=== PATIENT | male | born 1975 | race Caucasian/White ===

== ENCOUNTER 2022-11-21 07:52 | Outpatient (REF) | payer OTHER, SELFPAY ==
[2022-11-21 11:32] LABS: Hematocrit 44.4 % (42.0-52.0); Hemoglobin 16.1 g/dl (14.0-18.0); Mean Corpuscular HGB Conc 36.3 g/dl (31.0-36.0); Mean Corpuscular Hemoglobin 31.9 pg (27.0-33.0); Mean Corpuscular Volume 87.9 fL (80.0-98.0); Mean Platelet Volume 10.4 fL (9.4-12.4); Platelet Count 396 X10*3/uL (160-400); Red Blood Count 5.05 X10*6/uL (4.60-5.80); Red Cell Distribution Width 12.9 % (11.0-16.0); White Blood Count 10.4 X10*3/uL (4.8-10.8)
[2022-11-21 13:28] LABS: Alanine Aminotransferase 27 U/L (0-40); Albumin Level 4.5 g/dL (3.5-5.0); Alkaline Phosphatase 83 U/L (39-117); Anion Gap 18 (12-20); Aspartate Amino Transferase 26 U/L (5-37); Bilirubin Total 0.4 mg/dL (0.0-1.0); Blood Urea Nitrogen 25 mg/dL (9-16); Calcium 10.4 mg/dL (8.4-10.2); Carbon Dioxide 23 mmol/L (22-29); Chloride 94 mmol/L (96-108); Cholesterol 750 mg/dL; Estimated Glomerular Filt Rate > 60; Glucose Fasting 267 mg/dL (60-99); HDL Cholesterol 32 mg/dL; Potassium 4.9 mmol/L (3.3-5.1); Sodium 130 mmol/L (135-145); Triglycerides 3829 mg/dL
== END 2022-11-21 07:53 | disposition home or self-care (01) ==
LOC: HO.WFDLDS 07:52
PROVIDERS: Visit Provider Nurse Practitioner Family
DX: Z00.00 Encounter for general adult medical examination without abnormal findings (principal)
CPT/HCPCS: 36415; 80053; 80061; 84443; 85027

== ENCOUNTER 2023-02-07 11:30 | Outpatient (REF) | payer OTHER, SELFPAY ==
[2023-02-08 02:08] LABS: Alanine Aminotransferase 24 U/L (0-40); Albumin Level 4.3 g/dL (3.5-5.0); Alkaline Phosphatase 84 U/L (39-117); Anion Gap 16 (12-20); Aspartate Amino Transferase 22 U/L (5-37); Bilirubin Total 0.5 mg/dL (0.0-1.0); Blood Urea Nitrogen 20 mg/dL (9-16); Calcium 9.6 mg/dL (8.4-10.2); Carbon Dioxide 25 mmol/L (22-29); Chloride 95 mmol/L (96-108); Estimated Glomerular Filt Rate > 60; Glucose Fasting 197 mg/dL (60-99); HDL Cholesterol 26 mg/dL; Potassium 3.9 mmol/L (3.3-5.1); Sodium 132 mmol/L (135-145); Total Protein 8.7 g/dL (6.5-8.0)
[2023-02-08 03:45] LABS: Cholesterol 947 mg/dL; Triglycerides 3339 mg/dL
[2023-02-09 09:59] LABS: LDL Cholesterol Direct 143 mg/dL (<100)
== END 2023-02-07 11:31 | disposition home or self-care (01) ==
LOC: HO.WFDLDS 11:30
PROVIDERS: Visit Provider Nurse Practitioner Family
DX: E11.9 Type 2 diabetes mellitus without complications (principal); E66.9 Obesity, unspecified; I10 Essential (primary) hypertension; E78.5 Hyperlipidemia, unspecified
CPT/HCPCS: 36415; 80053; 80061; 83721

== ENCOUNTER 2023-02-12 16:17 | Outpatient (AMB) | payer OTHER, SELFPAY ==
--- NOTE | 2023-02-12 16:16 | MHC.PC.OV ---
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 Mental Health Required: No Allergies bee pollen Allergy (Mild, Verified 02/12/23 16:22) Vomiting Medication List - Last Reconciled 02/12/23 by Cally Rodriguez CNP blood pressure test kit-large As directed blood sugar diagnostic As directed blood-glucose meter As directed carvedilol 6.25 mg (2 x 3.125 mg) PO BID 30 days empagliflozin (Jardiance) 10 mg PO DAILY 30 days epinephrine (EpiPen 2-Keshav) 0.3 mg (0.3 mL) IM Q4H PRN fenofibrate 120 mg PO DAILY 30 days furosemide 40 mg PO DAILY lancets As directed metformin 500 mg PO BID 30 days omeprazole 20 mg PO DAILY 30 days rosuvastatin 40 mg PO DAILY 30 days sacubitril-valsartan 24-26 mg (Entresto) 1 tab PO BID ticagrelor 60 mg PO Q12H Tobacco use date assessed: 08/30/22 Dental Screening Dental Screen Date: 02/12/23 Did you have a dental visit in the last 12 months?: Yes Did you have a dental problem in the last 6 months where you did not have access to dental care?: No Was dental information given to patient?: Patient has dentist HPI HPI Comments History of Present Illness Details 47-year-old male presents for review of lipid panel results. He had blood work done on 02/07/2023. His Triglyceride was 3339, total cholesterol was 947, LDL direct was 143, and HDL was 26. Rosuvastatin 40 mg daily and fenofibrate 120 mg daily were ordered. No acute symptoms. He states that he drank half a gal to 3/4 upper gal whole milk for several years until last May when he was seriously ill, hospitalized, and diagnosed with sepsis and CHF. Since then, he drank 2% of the same amount of milk daily up until recently and changed to 1%, same quantity. He admits to exercising routinely. He is followed by cardiology and has a follow up appointment later this month. [facility] Surgical History H/O heart artery stent Social History Housing: Condominium Patient Tobacco Use Status: Former Tobacco user Tobacco use type: Cigarette e-Cigarette/Vaping Use: Never Used Second Hand Smoke Exposure: No service: No Current occupational status: employed Current occupational exposures/hazards: No Cognitive needs: No Hearing needs: No Vision needs: No Questionnaire Thrive Questionnaire Date Thrive assessed: 08/30/22 KEL-7 AMB Questionnaire KEL-7 Date KEL - 7 assessed: 08/30/22 Source: Developed by Drs. Volodymyr Saba, Rafia Bingham, Dirk Galvin and colleagues, with an educational merlin from [employer]. Review of Systems Const Details: Const Denies chills, Denies fatigue, Denies fever(s), Denies headache(s) and Denies weakness ENT Denies dizziness and Denies headache(s) Card Denies chest pain, Denies lightheadedness, Denies dyspnea and Denies other (Palpitations) Resp Denies cough, Denies dyspnea, Denies wheezing and Denies other ( shortness of breath) GI Denies abdominal pain, Denies melena, Denies hematochezia, Denies change in bowel habits, Denies dyspepsia and Denies nausea Denies hematuria and Denies dysuria Musc Denies abnormal gait, Denies myalgias, Denies arthralgias, Denies numbness and Denies tingling Skin/Breast Denies rash, Denies unusual bruising and Denies wounds Neuro Denies abnormal gait, Denies dizziness, Denies headache(s), Denies memory loss, Denies numbness, Denies Sensory deficit (Neuro), Denies tingling and Denies weakness Psych Denies anxiety and Denies depression Endo Denies fatigue Aller/Immun Denies wheezing Physical exam (Primary Care) Tobacco/Smoking Status: Tobacco use Status Tobacco use date assessed 08/30/22 02/12/23 16:19 Patient Tobacco Use Status Former Tobacco user 02/12/23 16:19 Tobacco use type Cigarette 02/12/23 16:19 e-Cigarette/Vaping Use Never Used 02/12/23 16:19 Thrive Assessment: Date of Thrive Assessment Date Thrive assessed 08/30/22 02/12/23 16:19 Const Other: General: no acute distress and well developed Nutritional Appearance: well nourished Orientation/consciousness: patient oriented x3 [facility] Head: Yes normocephalic and Yes atraumatic Eyes General: appearance normal, both eyes and all related structures Pupils: Equal, round and reactive pupils present EOM: EOMs intact bilaterally Resp Effort & Inspection: normal respiratory effort Auscultation: clear to auscultation bilaterally Cardio Rate: regular rate Rhythm: regular rhythm Heart sounds: S1 normal heart sound present, S2 normal heart sound present, no gallops, no murmurs and no rubs GI Palpation (GI): No Abdominal aortic bruit present, Soft to palpation, nontender, No hepatosplenomegaly present and No Rebound tenderness present Auscultation: normal bowel sounds General: Yes no CVA tenderness Back/Spine/Pelvis Back: no CVA tenderness Cervical Spine: cervical ROM normal and No Cervical spine tenderness Thoracic/Lumbar Spine: thoraco-lumbar ROM normal, No pain with thoraco-lumbar ROM, No thoracic spinal tenderness and No lumbar spinal tenderness Extrem General: Yes normal to inspection, No edema and No calf tenderness Skin General: warm and dry. Normal skin color. Normal skin turgor Lesions: no lesions Rashes: no rashes Trauma: no lacerations or abrasions Wounds: no wounds Nails: normal Neuro General: patient oriented x3, gait normal and no focal neuro deficit Cranial nerves: Yes Equal, round and reactive pupils present Cognition (Neuro): normal cognition Gait exam (Neuro): Normal gait present Sensory Exam: No Sensory deficit (Neuro) Psych Affect: normal affect Assessment and Plan Assessment & Plan (1) Hyperlipidemia: Code(s): E78.5 - Hyperlipidemia, unspecified Plan: Recent triglyceride, total cholesterol, and LDL were significantly elevated Take rosuvastatin and fenofibrate as prescribed Advised to limit foods high in saturated fat and avoid foods high in trans fat Intends to significantly reduce his milk intake Routine exercise encouraged Lipid panel ordered. Advised to get fasting blood work done before next visit Follow-up in 6 weeks or return sooner with concerns or symptoms Verbalized understanding and agreed with treatment plan. (2) Essential hypertension: Code(s): I10 - Essential (primary) hypertension Plan: Blood pressure is 130/72, slightly above goal of less than 130/80 Continue current treatment regimen Low-sodium diet encouraged Will continue to monitor He will follow-up in 6 weeks for hyperlipidemia Coding Level of Care Code Est Pt Level 3 (29560) Diagnoses Hyperlipidemia E78.5 Essential hypertension I10 Time Spent (min) 25
[2023-02-12 16:22] VITALS: BP 130/72; PULSE 90; O2SAT 97; BMI 33.2
== END 2023-02-12 16:48 | disposition home or self-care (01) ==
PROVIDERS: PCP Nurse Practitioner Family; Visit Provider Nurse Practitioner Family
DX: E78.5 Hyperlipidemia, unspecified (principal); I10 Essential (primary) hypertension
CPT/HCPCS: 99213

== ENCOUNTER 2023-03-28 16:03 | Outpatient (AMB) | payer OTHER, SELFPAY ==
[2023-03-28 16:07] VITALS: BP 134/86; PULSE 101; RESP 12; TEMP 36.5; O2SAT 97; BMI 30.4
--- NOTE | 2023-03-28 16:07 | A.OFFPC_ITS ---
Vital Signs 03/28/23 16:07 Height 5 ft 7 in Weight 194 lb 4 oz BMI 30.4 BP 134/86 Blood Pressure Location Rt brachial Position Sitting Respiration 12 Pulse 101 H Pulse Source Pulse Oximeter Temp 97.7 F Temp Source Temporal Artery Scan Pulse Oximetry (%) 97 Oxygen Delivery Method Room Air Intake Visit Reasons: 6wks HLD Intake Note: Patient states that his sugars have been high, so high that the meter wont tell him what the number is. Last time he was able to see a number for his glucose it 480 when he woke up, without eating. Patient states that the 480 is the lowest its been since last week. Patient states that he has been struggling to sleep and has been very fatigued.Patient states that he would like a note stating that hes been out since the and when he may return to work. 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 He is followed by Cardiology. He was referred to [facility] endocrinology for diabetes management. [facility] endocrinology referred him to Jordi Richey, Endocrinology in [place]. There is documentation Dr Bacon's office sent a letter to the patient requesting form to call and schedule an appointment to establish care. He notes he has been ridding a bicycle routinely and has lost 19 lb in the past 6 weeks. He notes he checks his blood sugar routinely and 2-3 times daily. He states most of his glucometer reading have been High. He notes his fasting glucose around 6 AM today was 418. He reports significant fatigue for the past 1 week. He states last week he was very tired and fell asleep while working. He has not been working for the past 1 week due to fatigue. 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 He has not done lipid panel blood work that is due. He notes he had retinal eye exam a month ago: normal [facility] Medical History (Updated 03/28/23 @ 16:43 by Cally Rodriguez CNP) No pertinent past medical history Surgical History H/O heart artery stent Family History (Updated 03/28/23 @ 16:23 by Mar Vázquez MA) Sister Heart attack [facility] Patient Tobacco Use Status: Former Tobacco user Tobacco use type: Cigarette e-Cigarette/Vaping Use: Never Used Second Hand Smoke Exposure: No service: No Current occupational status: employed Current occupational exposures/hazards: No Cognitive needs: No Hearing needs: No Vision needs: No Questionnaire Thrive Questionnaire Date Thrive assessed: 08/30/22 KEL-7 AMB Questionnaire KEL-7 Date KEL - 7 assessed: 08/30/22 Source: Developed by Drs. Volodymyr Saba, Rafia Bingham, Dirk Galvin and colleagues, with an educational merlin from [employer]. Review of Systems Const Details: Const Denies chills, Reports fatigue, Denies fever(s), Denies headache(s) and Denies weakness ENT Denies dizziness and Denies headache(s) Card Denies chest pain, Denies lightheadedness, Denies dyspnea and Denies other (Palpitations) Resp Denies cough, Denies dyspnea, Denies wheezing and Denies other ( shortness of breath) GI Denies abdominal pain, Denies melena, Denies hematochezia, Denies change in bowel habits, Denies dyspepsia and Denies nausea Denies hematuria and Denies dysuria Musc Denies abnormal gait, Denies myalgias, Denies arthralgias, Denies numbness and Denies tingling Skin/Breast Denies rash, Denies unusual bruising and Denies wounds Neuro Denies abnormal gait, Denies dizziness, Denies headache(s), Denies memory loss, Denies numbness, Denies Sensory deficit (Neuro), Denies tingling and Denies we akness Psych Denies anxiety, Denies depression, Denies memory loss Endo Denies cold intolerance, Denies fatigue, Denies heat intolerance, Denies polyd ipsia and Denies polyuria Aller/Immun Denies wheezing Physical exam (Primary Care) Vital Signs: Last Vital Signs Temp 96.7 F L 03/28/23 16:07 Pulse 101 H 03/28/23 16:07 Resp 12 03/28/23 16:07 Pulse Ox 97 03/28/23 16:07 Oxygen Delivery Method Room Air 03/28/23 16:07 BMI result Body Mass Index 30.4 Tobacco/Smoking Status: Tobacco use Status Tobacco use date assessed 08/30/22 03/28/23 16:13 Patient Tobacco Use Status Former Tobacco user 03/28/23 16:13 Tobacco use type Cigarette 03/28/23 16:13 e-Cigarette/Vaping Use Never Used 03/28/23 16:13 Thrive Assessment: Date of Thrive Assessment Date Thrive assessed 08/30/22 03/28/23 16:13 Const Other: General: no acute distress and well developed Nutritional Appearance: well nourished Orientation/consciousness: patient oriented x3 HENMT Head: Yes normocephalic and Yes atraumatic Eyes General: appearance normal, both eyes and all related structures Pupils: Equal, round and reactive pupils present EOM: EOMs intact bilaterally Resp Effort & Inspection: normal respiratory effort Auscultation: clear to auscultation bilaterally Cardio Rate: regular rate Rhythm: regular rhythm Heart sounds: S1 normal heart sound present, S2 normal heart sound present, no gallops, no murmurs and no rubs GI Palpation (GI): No Abdominal aortic bruit present, Soft to palpation, nontender, No hepatosplenomegaly present and No Rebound tenderness present Auscultation: normal bowel sounds General: Yes no CVA tenderness Back/Spine/Pelvis Back: no CVA tenderness Cervical Spine: cervical ROM normal and No Cervical spine tenderness Thoracic/Lumbar Spine: thoraco-lumbar ROM normal, No pain with thoraco-lumbar ROM, No thoracic spinal tenderness and No lumbar spinal tenderness Extrem General: Yes normal to inspection, No edema and No calf tenderness Skin General: warm and dry. Normal skin color. Normal skin turgor Lesions: no lesions Rashes: no rashes Trauma: no lacerations or abrasions Wounds: no wounds Nails: normal Neuro General: patient oriented x3, gait normal and no focal neuro deficit Cranial nerves: Yes Equal, round and reactive pupils present Cognition (Neuro): normal cognition Gait exam (Neuro): Normal gait present Sensory Exam: No Sensory deficit (Neuro) Psych Appearance: grossly normal Affect: normal affect Attitude: cooperative Thought process: Normal thought process present Results AMB Random Glucose (hemocue) AMB Random Glucose (hemocue) 533 mg/dL Last Edit by Mar Vázquez MA on 03/28/23 17:03 AMB Hemoglobin A1c AMB Hemoglobin A1c 12 % Last Edit by Mar Vázquez MA on 03/28/23 17:06 Assessment and Plan Assessment & Plan (1) Essential hypertension: Code(s): I10 - Essential (primary) hypertension Plan: Blood pressure is 138/86, slightly above goal of less than 130/80 Continue current treatment regimen Low-sodium diet encouraged Continue follow-up with cardiology as planned Verbalized understanding and agreed with treatment plan (2) Type 2 diabetes mellitus: Code(s): E11.9 - Type 2 diabetes mellitus without complications Plan: Last A1c in 01/12/2023 was 8.6% Random blood glucose is 533 A1c is 12.0%, above goal of less than 7.0% Hyperosmolar hyperglycemic state is likely Lantus ordered. Take as prescribed Instructed on insulin pain use Continue to take metformin and Jardiance as prescribed ADA diet, routine exercise, and adequate hydration encouraged Advised to call Dr. Bacon, Endocrinology to set up an appointment Check blood glucose 3 times daily, record readings and bring to next appointment Excuse letter given for work for the next 1 week Follow-up in 2 weeks or return sooner with worsening or new symptoms Verbalized understanding and agreed with treatment plan. (3) Fatigue: Code(s): R53.83 - Other fatigue Plan: Fatigue may be attributed to elevated blood glucose. Continue with diabetes regimen as prescribed Anemia and thyroid disease is also likely. Will check CBC and TSH Adequate hydration encouraged Follow-up in 2 weeks or return sooner with worsening or new symptoms Verbalized understanding and agreed with treatment plan (4) Hyperlipidemia: Code(s): E78.5 - Hyperlipidemia, unspecified Plan: He has not done lipid panel blood work that is due He has history of very high triglycerides and cholesterol levels Encouraged to get fasting blood work done before next visit Advised to limit foods high in saturated fat and avoid foods high trans fat Routine exercise encouraged Follow-up in 2 weeks Verbalized understanding and agreed with treatment plan. Orders: Orders Complete Blood Count Auto Diff Today R53.83 - Other fatigue TSH reflex Free T4 Today R53.83 - Other fatigue AMB Random Glucose (hemocue) Today Z13.9 - Encounter for screening, unspecified Medications: New metformin 500 mg PO BID 30 days 60 tabs 2RF insulin glargine (Lantus Solostar U-100 Insulin) 10 units (0.1 mL) subcut QPM 15 mL 2RF pen needle, diabetic (BD Ultra-Fine Micro Pen Needle) As directed 100 ea 2RF E11.9 - Type 2 diabetes mellitus without complications Discontinued metformin Discontinued Reason: Doctor's Order 500 mg PO BID 30 days 60 tabs 3RF Coding Level of Care Code Est Pt Level 3 (45719) Diagnoses Essential hypertension I10 Type 2 diabetes mellitus E11.9 Fatigue R53.83 Hyperlipidemia E78.5
== END 2023-03-28 17:20 | disposition home or self-care (01) ==
PROVIDERS: PCP Nurse Practitioner Family; Visit Provider Nurse Practitioner Family
DX: I10 Essential (primary) hypertension (principal); E11.9 Type 2 diabetes mellitus without complications; R53.83 Other fatigue; E78.5 Hyperlipidemia, unspecified
CPT/HCPCS: 82948; 99213

== ENCOUNTER 2023-04-03 15:28 | Outpatient (AMB) | payer OTHER, SELFPAY ==
--- NOTE | 2023-04-03 15:32 | MHC.PC.OV ---
Vital Signs 04/03/23 15:33 Height 5 ft 7 in Weight 183 lb BMI 28.7 BP 124/74 Blood Pressure Location Lt brachial Position Sitting Respiration 13 Pulse 99 Pulse Source Pulse Oximeter Temp 97.2 F Temp Source Temporal Artery Scan Pulse Oximetry (%) 99 Oxygen Delivery Method Room Air Intake Visit Reasons: Stomach Pains Intake Note: Patient states that he hasnt been able to drink or hold anything down since Sunday03/30/23 which was his last visit in office. Patient states that his blood sugar was at 426 right before he got here and he hasnt eaten or drank anything for it to be that high. 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 He states that his symptoms started 4 days ago an have progressively gotten worse. He has lost 10 lb in the past 1 week. He was evaluated last week for hyperlipidemia, hypertension, and diabetes. He reported elevated fasting and nonfasting blood glucose. Random blood glucose was 533, A1c was 12.0. Hypeerosmolar hyperglycemic state was suspected. Lantus was prescribed. Adequate hydration was encouraged. He was advised to call and establish an appointment with Endocrinology. He notes he has been taking Lantus as prescribed. He has not called endocrinology to set up an appointment. He states his blood glucose has been in the 300s. His random glucose was 426 before leaving his home for this office. [facility] Medical History (Updated 04/03/23 @ 16:11 by Cally Rodriguez CNP) No pertinent past medical history Surgical History H/O heart artery stent Family History Sister Heart attack Social History Housing: Condominium Patient Tobacco Use Status: Former Tobacco user Tobacco use type: Cigarette e-Cigarette/Vaping Use: Never Used Second Hand Smoke Exposure: No service: No Current occupational status: employed Current occupational exposures/hazards: No Cognitive needs: No Hearing needs: No Vision needs: No Questionnaire Thrive Questionnaire Date Thrive assessed: 08/30/22 KEL-7 AMB Questionnaire KEL-7 Date KEL - 7 assessed: 08/30/22 Source: Developed by Drs. Volodymyr Saba, Rafia Bingham, Dirk Galvin and colleagues, with an educational merlin from [email or web address]. Review of Systems Const Details: Const Denies chills, Denies fatigue, Denies fever(s), Denies headache(s) and Denies weakness ENT Denies dizziness and Denies headache(s) Card Denies chest pain, Denies lightheadedness, Denies dyspnea and Denies other (Palpitations) Resp Denies cough, Denies dyspnea, Denies wheezing and Denies other ( shortness of breath) GI Reports as per HPI Denies hematuria and Denies dysuria Musc Denies abnormal gait, Denies myalgias, Denies arthralgias, Denies numbness and Denies tingling Skin/Breast Denies rash, Denies unusual bruising and Denies wounds Neuro Denies abnormal gait, Denies dizziness, Denies headache(s), Denies memory loss, Denies numbness, Denies Sensory deficit (Neuro), Denies tingling and Denies weakness Psych Denies anxiety, Denies depression, Denies memory loss Endo Denies cold intolerance, Denies fatigue, Denies heat intolerance, Denies polydipsia and Denies polyuria Aller/Immun Denies wheezing Physical exam (Primary Care) Tobacco/Smoking Status: Tobacco use Status Tobacco use date assessed 08/30/22 03/28/23 16:13 Patient Tobacco Use Status Former Tobacco user 03/28/23 16:13 Tobacco use type Cigarette 03/28/23 16:13 e-Cigarette/Vaping Use Never Used 03/28/23 16:13 Thrive Assessment: Date of Thrive Assessment Date Thrive assessed 08/30/22 03/28/23 16:13 Const Other: General: no acute distress and well developed Nutritional Appearance: well nourished Orientation/consciousness: patient oriented x3 HENMT Head: Yes normocephalic and Yes atraumatic Dry mucous membrane Eyes General: appearance normal, both eyes and all related structures Pupils: Equal, round and reactive pupils present EOM: EOMs intact bilaterally Resp Effort & Inspection: normal respiratory effort Auscultation: clear to auscultation bilaterally Cardio Rate: regular rate Rhythm: regular rhythm Heart sounds: S1 normal heart sound present, S2 normal heart sound present, no gallops, no murmurs and no rubs GI Palpation (GI): No Abdominal aortic bruit present, Soft to palpation, significant tenderness to palpation, No hepatosplenomegaly present and No Rebound tenderness present Auscultation: normal bowel sounds General: Yes no CVA tenderness Back/Spine/Pelvis Back: no CVA tenderness Cervical Spine: cervical ROM normal and No Cervical spine tenderness Thoracic/Lumbar Spine: thoraco-lumbar ROM normal, No pain with thoraco-lumbar ROM, No thoracic spinal tenderness and No lumbar spinal tenderness Extrem General: Yes normal to inspection, No edema and No calf tenderness Skin General: warm and dry. Normal skin color. Normal skin turgor Lesions: no lesions Rashes: no rashes Trauma: no lacerations or abrasions Wounds: no wounds Nails: normal Neuro General: patient oriented x3, gait normal and no focal neuro deficit Cranial nerves: Yes Equal, round and reactive pupils present Cognition (Neuro): normal cognition Gait exam (Neuro): Normal gait present Sensory Exam: No Sensory deficit (Neuro) Psych Appearance: grossly normal Affect: normal affect Attitude: cooperative Thought process: Normal thought process present Assessment and Plan Assessment & Plan (1) Abdominal pain: Code(s): R10.9 - Unspecified abdominal pain Qualifiers: Abdominal location: generalized Qualified Code(s): R10.84 - Generalized abdominal pain Plan: Significant abdominal tenderness to palpation Dry mucous membrane noted HHS may have escalated to DKA Dehydration is also likely Advised to go to the ED for further evaluation and treatment Verbalized understanding and agreed with the plan. (2) Vomiting: Code(s): R11.10 - Vomiting, unspecified Qualifiers: Vomiting type: bilious vomiting Plan: As above Coding Level of Care Code Est Pt Level 3 (51595) Diagnoses Generalized abdominal pain R10.84 Abdominal location: generalized Vomiting R11.10 Vomiting type: bilious vomiting
[2023-04-03 15:33] VITALS: BP 124/74; PULSE 99; RESP 13; TEMP 36.2; O2SAT 99; BMI 28.7
== END 2023-04-03 16:25 | disposition home or self-care (01) ==
PROVIDERS: PCP Nurse Practitioner Family; Visit Provider Nurse Practitioner Family
DX: R10.84 Generalized abdominal pain (principal); R11.10 Vomiting, unspecified
CPT/HCPCS: 99213

== ENCOUNTER 2023-04-09 11:34 | Outpatient (REF) | payer OTHER, SELFPAY ==
[2023-04-09 14:16] LABS: MANUAL DIFF FLAG NO
[2023-04-09 14:21] LABS: Basophils Absolute Auto 0.1 X10*3/uL (0.0-0.2); Basophils Percent Auto 0.5 % (0-2); Eosinophils Absolute Auto 0.2 X10*3/uL (0.0-0.4); Hematocrit 44.6 % (42.0-52.0); Hemoglobin 15.5 g/dl (14.0-18.0); Imm Gran Abs Auto 0.07 X10*3/uL (0.00-0.03); Imm Gran Pct Auto 0.7 % (0.0-0.4); Lymphocytes Absolute Auto 3.2 X10*3/uL (1.2-4.9); Lymphocytes Percent Auto 33.4 % (20-40); Mean Corpuscular HGB Conc 34.8 g/dl (31.0-36.0); Mean Corpuscular Hemoglobin 28.9 pg (27.0-33.0); Mean Corpuscular Volume 83.2 fL (80.0-98.0); Mean Platelet Volume 10.3 fL (9.4-12.4); Monocytes Absolute Auto 0.7 X10*3/uL (0.1-1.2); Monocytes Percent Auto 7.6 % (2-11); Neutrophils Absolute Auto 5.3 x10*3/uL (2.0-8.3); Neutrophils Percent Auto 55.8 % (45-73); Platelet Count 438 X10*3/uL (160-400); Red Blood Count 5.36 X10*6/uL (4.60-5.80); Red Cell Distribution Width 12.3 % (11.0-16.0); White Blood Count 9.6 X10*3/uL (4.8-10.8)
[2023-04-09 15:01] LABS: Cholesterol 316 mg/dL (<200); HDL Cholesterol 40 mg/dL (>40); LDL Cholesterol Calculated 203 mg/dL (<100); Triglycerides 367 mg/dL (<150)
[2023-04-09 15:08] LABS: TSH reflex Free T4 2.03 uIU/mL (0.32-4.0)
== END 2023-04-09 11:35 | disposition home or self-care (01) ==
LOC: HO.WFDLDS 11:34
PROVIDERS: Visit Provider Nurse Practitioner Family
DX: E78.5 Hyperlipidemia, unspecified (principal); R53.83 Other fatigue
CPT/HCPCS: 36415; 80061; 84443; 85025

== ENCOUNTER 2023-04-13 15:35 | Outpatient (AMB) | payer OTHER, SELFPAY ==
--- NOTE | 2023-04-13 15:40 | MHC.PC.OV ---
Vital Signs 04/13/23 15:41 Height 5 ft 7 in Weight 187 lb BMI 29.3 BP 128/70 Blood Pressure Location Rt brachial Position Sitting Respiration 12 Pulse 100 Pulse Source Pulse Oximeter Temp 97 F Temp Source Temporal Artery Scan Pulse Oximetry (%) 97 Oxygen Delivery Method Room Air Intake Visit Reasons: 2 wks DM, HLD Intake Note: Patient would like a note for work for todays visit. Patient also states that he has been having problems with vision since his sugars have been high. 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 Accompanied by: self Allergies bee pollen Allergy (Mild, Verified 04/13/23 15:51) Vomiting Medication List - Last Reviewed 04/13/23 by Mar Vázquez MA blood pressure test kit-large As directed blood sugar diagnostic As directed blood sugar diagnostic (FreeStyle Lite Strips) As directed TID blood-glucose meter (FreeStyle Lite Meter kit) As directed carvedilol 6.25 mg (2 x 3.125 mg) PO BID 30 days empagliflozin (Jardiance) 10 mg PO DAILY 30 days epinephrine (EpiPen 2-Keshav) 0.3 mg (0.3 mL) IM Q4H PRN fenofibrate 120 mg PO DAILY 30 days furosemide 40 mg PO DAILY insulin glargine (Lantus Solostar U-100 Insulin) 10 units (0.1 mL) subcut QPM lancets (Easy Touch Lancets) As directed metformin 500 mg PO BID 30 days omeprazole 20 mg PO DAILY 30 days pen needle, diabetic (BD Ultra-Fine Micro Pen Needle) As directed rosuvastatin 40 mg PO DAILY 30 days sacubitril-valsartan 24-26 mg (Entresto) 1 tab PO BID ticagrelor 60 mg PO Q12H Tobacco use date assessed: 08/30/22 Dental Screening Dental Screen Date: 04/13/23 Did you have a dental visit in the last 12 months?: No Did you have a dental problem in the last 6 months where you did not have access to dental care?: No Was dental information given to patient?: Yes HPI HPI Comments History of Present Illness Details 47-year-old male presents for hyperlipidemia and diabetes follow-up. He was evaluated on 04/03/2023 for abdominal pain, nausea, and hyperglycemia. He reported for random blood glucose of 426 before arriving. He was advised to go to the ED for for the dehydration and evaluation for HHS versus DKA. He was evaluated at [facility] ED on 04/04/2023. CT abdomen/pelvis without acute findings. Labs without evidence of ketoacidosis, although days evidence of ketosis which is likely playing a role in presentation. He received IV pain medication, LR, insulin with improvement of symptoms and blood glucose. He notes that his GI symptoms have completely resolved. He states his blood glucose is still over 400. He reports associated significant blurry vision with elevated blood glucose. He admits to taking his medications as prescribed and maintaining a healthy diet. He states he has an appointment with endocrinology later this month. He was referred to Ophthalmology earlier this year; he notes he was seen 3 months ago and had a normal eye exam [facility] Medical History No pertinent past medical history Surgical History H/O heart artery stent Family History Sister Heart attack Social History [facility] Patient Tobacco Use Status: Former Tobacco user Tobacco use type: Cigarette e-Cigarette/Vaping Use: Never Used Second Hand Smoke Exposure: No service: No Current occupational status: employed Current occupational exposures/hazards: No Cognitive needs: No Hearing needs: No Vision needs: Yes Questionnaire Thrive Questionnaire Date Thrive assessed: 08/30/22 KEL-7 AMB Questionnaire KEL-7 Date KEL - 7 assessed: 08/30/22 Source: Developed by Drs. Volodymyr Saba, Rafia Bingham, Dirk Galvin and colleagues, with an educational merlin from [employer]. Review of Systems Const Details: Const Denies chills, Denies fatigue, Denies fever(s), Denies headache(s) and Denies weakness ENT Denies dizziness and Denies headache(s) Card Denies chest pain, Denies lightheadedness, Denies dyspnea and Denies other (Palpitations) Resp Denies cough, Denies dyspnea, Denies wheezing and Denies other ( shortness of breath) GI Denies abdominal pain, Denies melena, Denies hematochezia, Denies change in bowel habits, Denies dyspepsia and Denies nausea Denies hematuria and Denies dysuria Musc Denies abnormal gait, Denies myalgias, Denies arthralgias, Denies numbness and Denies tingling Skin/Breast Denies rash, Denies unusual bruising and Denies wounds Neuro Denies abnormal gait, Denies dizziness, Denies headache(s), Denies memory loss, Denies numbness, Denies Sensory deficit (Neuro), Denies tingling and Denies weakness Psych Denies anxiety, Denies depression, Denies memory loss Endo Denies cold intolerance, Denies fatigue, Denies heat intolerance, Denies polydipsia and Denies polyuria Aller/Immun Denies wheezing Physical exam (Primary Care) Tobacco/Smoking Status: Tobacco use Status Tobacco use date assessed 08/30/22 04/03/23 15:38 Patient Tobacco Use Status Former Tobacco user 04/03/23 15:38 Tobacco use type Cigarette 04/03/23 15:38 e-Cigarette/Vaping Use Never Used 04/03/23 15:38 Thrive Assessment: Date of Thrive Assessment Date Thrive assessed 08/30/22 04/03/23 15:38 Const Other: General: no acute distress and well developed Nutritional Appearance: well nourished Orientation/consciousness: patient oriented x3 HENMT Head: Yes normocephalic and Yes atraumatic Eyes General: appearance normal, both eyes and all related structures Pupils: Equal, round and reactive pupils present EOM: EOMs intact bilaterally Resp Effort & Inspection: normal respiratory effort Auscultation: clear to auscultation bilaterally Cardio Rate: regular rate Rhythm: regular rhythm Heart sounds: S1 normal heart sound present, S2 normal heart sound present, no gallops, no murmurs and no rubs GI Palpation (GI): No Abdominal aortic bruit present, Soft to palpation, nontender, No hepatosplenomegaly present and No Rebound tenderness present Auscultation: normal bowel sounds General: Yes no CVA tenderness Back/Spine/Pelvis Back: no CVA tenderness Cervical Spine: cervical ROM normal and No Cervical spine tenderness Thoracic/Lumbar Spine: thoraco-lumbar ROM normal, No pain with thoraco-lumbar ROM, No thoracic spinal tenderness and No lumbar spinal tenderness Extrem General: Yes normal to inspection, No edema and No calf tenderness Skin General: warm and dry. Normal skin color. Normal skin turgor Lesions: no lesions Rashes: no rashes Trauma: no lacerations or abrasions Wounds: no wounds Nails: normal Neuro General: patient oriented x3, gait normal and no focal neuro deficit Cranial nerves: Yes Equal, round and reactive pupils present Cognition (Neuro): normal cognition Gait exam (Neuro): Normal gait present Sensory Exam: No Sensory deficit (Neuro) Psych Appearance: grossly normal Affect: normal affect Attitude: cooperative Thought process: Normal thought process present Results AMB Random Glucose (hemocue) AMB Random Glucose (hemocue) 436 mg/dL Last Edit by Mar Vázquez MA on 04/13/23 16:24 Assessment and Plan Assessment & Plan (1) Essential hypertension: Code(s): I10 - Essential (primary) hypertension Plan: Blood pressures control, 128/70, within goal of less than 130/80 Continue with current treatment regimen Low-sodium diet encouraged Follow-up in 2 weeks or return sooner with symptoms or concerns Verbalized understanding and agreed with treatment the plan. (2) Type 2 diabetes mellitus: Code(s): E11.9 - Type 2 diabetes mellitus without complications Plan: Reports continued elevated blood glucose above 400 A1c was 12.0% earlier this month, above goal of less than 7.0% Random glucose today is 436 Ladarius increase Lantus to 20 units every night. Take as prescribed Continue to take metformin and Jardiance as prescribed ADA diet and routine exercise encouraged Follow-up with endocrinology as planned Monitor blood glucose daily, record readings, and bring to next appointment Informed that blurry vision may be attributed to elevated glucose level and may improve with control blood glucose levels Follow-up in 2 weeks or return sooner with worsening or new symptoms Verbalized understanding and agreed with treatment plan. (3) Hyperlipidemia: Code(s): E78.5 - Hyperlipidemia, unspecified Plan: Recent lab results reviewed with the patient His lipid levels have continues to improve significantly. Current LDL is 203 Continue to take rosuvastatin as prescribed Limit foods high in saturated fat and avoid foods high trans fat Routine exercise encouraged Will repeat lipid panel in 6 weeks Verbalized understanding and agreed with treatment plan. Orders: Orders Glucose Random Today E11.9 - Type 2 diabetes mellitus without complications Lipid Panel 6 Weeks E78.5 - Hyperlipidemia, unspecified Medications: New insulin glargine (Lantus Solostar U-100 Insulin) 20 units (0.2 mL) subcut QPM 30 days 15 mL 3RF Discontinued insulin glargine (Lantus Solostar U-100 Insulin) Discontinued Reason: Doctor's Order 10 units (0.1 mL) subcut QPM 15 mL 2RF Coding Level of Care Code Est Pt Level 3 (49923) Diagnoses Essential hypertension I10 Type 2 diabetes mellitus E11.9 Hyperlipidemia E78.5
[2023-04-13 15:41] VITALS: BP 128/70; PULSE 100; RESP 12; TEMP 36.1; O2SAT 97; BMI 29.3
== END 2023-04-13 16:32 | disposition home or self-care (01) ==
PROVIDERS: PCP Nurse Practitioner Family; Visit Provider Nurse Practitioner Family
DX: I10 Essential (primary) hypertension (principal); E11.9 Type 2 diabetes mellitus without complications; E78.5 Hyperlipidemia, unspecified
CPT/HCPCS: 99213

== ENCOUNTER 2023-06-28 12:39 | Outpatient (AMB) | payer OTHER, SELFPAY ==
[2023-06-28 12:41] VITALS: BP 136/74; PULSE 87; RESP 13; TEMP 36.4; O2SAT 97; BMI 29.6
--- NOTE | 2023-06-28 12:41 | A.OFFPC_ITS ---
Vital Signs 06/28/23 12:41 06/28/23 13:18 Height 5 ft 7 in Weight 189 lb BMI 29.6 BP 136/74 120/80 Blood Pressure Location Rt brachial Rt brachial Position Sitting Sitting Respiration 13 Pulse 87 Pulse Source Pulse Oximeter Temp 97.6 F Temp Source Temporal Artery Scan Pulse Oximetry (%) 97 Oxygen Delivery Method Room Air Intake Visit Reasons: 2 wks DM, HLD Intake Note: Patient states that his fet hurt really bad and feel like they're getting stabbed. Patient states that the pain goes away after walking on them for a little but when he stops the pain comes back. Patient states that he recently has gotten new glasses and already his reader glasses he cant see out of and it hasn't been 6 months. Epic Beacon Analyst Required: No Accompanied by: Self / Same As Patient Allergies bee pollen Allergy (Mild, Verified 06/28/23 13:02) Vomiting Medication List - Last Reconciled 06/28/23 by Cally Rodriguez CNP blood pressure test kit-large As directed blood sugar diagnostic As directed blood sugar diagnostic (FreeStyle Lite Strips) As directed TID blood-glucose meter (FreeStyle Lite Meter kit) As directed carvedilol 6.25 mg (2 x 3.125 mg) PO BID 30 days empagliflozin (Jardiance) 10 mg PO DAILY 30 days epinephrine (EpiPen 2-Keshav) 0.3 mg (0.3 mL) IM Q4H PRN fenofibrate 120 mg PO DAILY 30 days furosemide 40 mg PO DAILY insulin glargine (Lantus Solostar U-100 Insulin) 20 units (0.2 mL) subcut QPM 30 days lancets (Easy Touch Lancets) As directed metformin 500 mg PO BID 30 days omeprazole 20 mg PO DAILY 30 days pen needle, diabetic (BD Ultra-Fine Micro Pen Needle) As directed rosuvastatin 40 mg PO DAILY 30 days sacubitril-valsartan 24-26 mg (Entresto) 1 tab PO BID ticagrelor 60 mg PO Q12H Tobacco use date assessed: 08/30/22 Dental Screening Dental Screen Date: 06/28/23 Did you have a dental visit in the last 12 months?: No Did you have a dental problem in the last 6 months where you did not have access to dental care?: No Was dental information given to patient?: Yes HPI HPI Comments History of Present Illness Details 47-year-old male presents for diabetes f ollow-up He admits to taking his medications as prescribed without adverse reactions His Lantus was increased to 20 units daily at his last visit due to reported i ncreased blood glucose. Random glucose at that visit was 436 His last A1c in March was 12% He has not gotten labs done for urine microalbumin/creatinine ratio and repeat lipid panel He notes that he has been exercising and making healthy lifestyle choices. He states he lost about 25 lb in the last 3 months He reports needles sensation underneath his feet for the past 2 months. His symptoms intensifies with initial 30 steps and completely resolves He notes he had an intake for endocrinology in [facility] but has not been contacted for an appointment He notes that he has an appointment with cardiology next week for HTN and h/o CHF [facility] Medical History No pertinent past medical history Surgical History H/O heart artery stent Family History Sister Heart attack Social History Housing: Condominium Patient Tobacco Use Status: Former Tobacco user Tobacco use type: Cigarette e-Cigarette/Vaping Use: Never Used Second Hand Smoke Exposure: No service: No Current occupational status: employed 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 Volodymyr Saba, Rafia Bingham, Dirk Galvin and colleagues, with an educational merlin from [id number]. Review of Systems Const Details: Const Denies chills, Denies fatigue, Denies fever(s), Denies headache(s) and Denies weakness ENT Denies dizziness and Denies headache(s) Card Denies chest pain, Denies lightheadedness, Denies dyspnea and Denies other (Palpitations) Resp Denies cough, Denies dyspnea, Denies wheezing and Denies other ( shortness of breath) GI Denies abdominal pain, Denies melena, Denies hematochezia, Denies change in bowel habits, Denies dyspepsia and Denies nausea Denies hematuria and Denies dysuria Musc Denies abnormal gait, Denies myalgias, Denies arthralgias, Denies numbness and Denies tingling Skin/Breast Denies rash, Denies unusual bruising and Denies wounds Neuro Denies abnormal gait, Denies dizziness, Denies headache(s), Denies memory loss, Denies numbness, Denies Sensory deficit (Neuro), Denies tingling and Denies weakness Psych Denies anxiety, Denies depression, Denies memory loss Endo Denies cold intolerance, Denies fatigue, Denies heat intolerance, Denies polydipsia and Denies polyuria Aller/Immun Denies wheezing Physical exam (Primary Care) Vital Signs: Last Vital Signs Temp 97.6 F 06/28/23 12:41 Pulse 87 06/28/23 12:41 Resp 13 06/28/23 12:41 BP 136/74 06/28/23 12:41 Pulse Ox 97 06/28/23 12:41 Oxygen Delivery Method Room Air 06/28/23 12:41 BMI result Body Mass Index 29.6 Tobacco/Smoking Status: Tobacco use Status Tobacco use date assessed 08/30/22 06/28/23 12:49 Patient Tobacco Use Status Former Tobacco user 06/28/23 12:49 Tobacco use type Cigarette 06/28/23 12:49 e-Cigarette/Vaping Use Never Used 06/28/23 12:49 Thrive Assessment: Date of Thrive Assessment Date Thrive assessed 08/30/22 06/28/23 12:49 Const Other: General: no acute distress and well developed Nutritional Appearance: well nourished Orientation/consciousness: patient oriented x3 HENMT Head: Yes normocephalic and Yes atraumatic Eyes General: appearance normal, both eyes and all related structures Pupils: Equal, round and reactive pupils present EOM: EOMs intact bilaterally Resp Effort & Inspection: normal respiratory effort Auscultation: clear to auscultation bilaterally Cardio Rate: regular rate Rhythm: regular rhythm Heart sounds: S1 normal heart sound present, S2 normal heart sound present, no gallops, no murmurs and no rubs GI Palpation (GI): No Abdominal aortic bruit present, Soft to palpation, nontender, No hepatosplenomegaly present and No Rebound tenderness present Auscultation: normal bowel sounds General: Yes no CVA tenderness Back/Spine/Pelvis Back: no CVA tenderness Cervical Spine: cervical ROM normal and No Cervical spine tenderness Thoracic/Lumbar Spine: thoraco-lumbar ROM normal, No pain with thoraco-lumbar ROM, No thoracic spinal tenderness and No lumbar spinal tenderness Extrem General: Yes normal to inspection, No edema and No calf tenderness Skin General: warm and dry. Normal skin color. Normal skin turgor Neuro General: patient oriented x3, gait normal and no focal neuro deficit Cranial nerves: Yes Equal, round and reactive pupils present Cognition (Neuro): normal cognition Gait exam (Neuro): Normal gait present Sensory Exam: No Sensory deficit (Neuro) Psych Appearance: grossly normal Affect: normal affect Attitude: cooperative Thought process: Normal thought process present Assessment and Plan Assessment & Plan (1) Type 2 diabetes mellitus: Code(s): E11.9 - Type 2 diabetes mellitus without complications Plan: A1c today is 8.3%, above goal of less than 7.0% Will increase metformin to 850 mg daily. Take as prescribed Continue to take Lantus 20 units in the evening ADA diet and routine exercise encouraged His last diabetic eye exam was on 01/2023 Recent LDL was 203, above goal of less than 70 Encouraged to get lipid panel and urine micro albumin/creatinine ratio labs done before his next visit Will recheck A1c in 3 months Follow-up in 1 month for an extended physical exam or return sooner with symptoms or concerns Verbalized understanding and agreed with treatment plan (2) Essential hypertension: Code(s): I10 - Essential (primary) hypertension Plan: Resting blood pressure is 120/80, slightly above goal of less than 130/80 Continue current treatment regimen Low-sodium diet encouraged Will continue to monitor Follow-up in 2 months for an extended physical exam Verbalized understanding and agreed with treatment plan (3) Hyperlipidemia: Code(s): E78.5 - Hyperlipidemia, unspecified Plan: Recent triglycerides, total cholesterol, and LDL levels were elevated, 367, 316, and 203 respectively, HDL level was slightly low, 40 He did not get repeat lipid panel blood work done. Encouraged to get fasting blood work done before his next visit Advised to limit foods high in saturated fat and avoid foods high trans fat Routine exercise encouraged Follow-up appointment for complete physical exam in 2 months Verbalized understanding and agreed with treatment plan (4) Neuropathy of both feet: Code(s): G57.93 - Unspecified mononeuropathy of bilateral lower limbs Plan: Reports needles sensation underneath his feet for the past 2 months. His symptoms intensifies with initial 30 steps and completely resolves Likely diabetic neuropathy Gabapentin ordered. Take as prescribed Referred to Podiatry Follow-up with worsening or new symptoms Verbalized understanding and agreed with treatment plan Orders: Referrals Podiatry Referral E11.9 - Type 2 diabetes mellitus without complications, G57.93 - Unspecified mononeuropathy of bilateral lower limbs Medications: New metformin 850 mg PO BID 30 days 60 tabs 3RF gabapentin 300 mg PO BID 30 days 60 caps 2RF Discontinued metformin Discontinued Reason: Change Referral Type 500 mg PO BID 30 days 60 tabs 2RF Coding Level of Care Code Est Pt Level 4 (22858) Diagnoses Type 2 diabetes mellitus E11.9 Essential hypertension I10 Hyperlipidemia E78.5 Neuropathy of both feet G57.93
[2023-06-28 13:18] VITALS: BP 120/80
== END 2023-06-28 13:25 | disposition home or self-care (01) ==
PROVIDERS: PCP Nurse Practitioner Family; Visit Provider Nurse Practitioner Family
DX: E11.9 Type 2 diabetes mellitus without complications (principal); I10 Essential (primary) hypertension; E78.5 Hyperlipidemia, unspecified; G57.93 Unspecified mononeuropathy of bilateral lower limbs
CPT/HCPCS: 83036; 99214

== ENCOUNTER → 2024-11-17 14:48 | Outpatient (BNVA) | payer MEDICAID, SELFPAY | PROVIDERS: PCP Nurse Practitioner Family; Visit Provider Nurse Practitioner Family | DX: Z13.89 Encounter for screening for other disorder (principal) ==

== ENCOUNTER 2024-11-28 10:51 | Outpatient (AMB) | payer OTHER, SELFPAY ==
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
[2024-11-28 11:08] VITALS: BP 126/78; PULSE 93; RESP 14; TEMP 36.9; O2SAT 95; BMI 18.9
== END 2024-11-28 11:58 | disposition home or self-care (01) ==
PROVIDERS: PCP Nurse Practitioner Family; Visit Provider Nurse Practitioner Family
DX: I10 Essential (primary) hypertension (principal); E11.9 Type 2 diabetes mellitus without complications; F32.9 Major depressive disorder, single episode, unspecified; F41.9 Anxiety disorder, unspecified; G47.9 Sleep disorder, unspecified; R63.4 Abnormal weight loss; Z85.038 Personal history of other malignant neoplasm of large intestine; G57.93 Unspecified mononeuropathy of bilateral lower limbs; M54.50 Low back pain, unspecified; G89.29 Other chronic pain

== ENCOUNTER → 2024-11-28 10:51 | Outpatient (BNVA) | payer OTHER, SELFPAY | PROVIDERS: PCP Nurse Practitioner Family; Visit Provider Nurse Practitioner Family | DX: I10 Essential (primary) hypertension (principal); E11.9 Type 2 diabetes mellitus without complications; F41.9 Anxiety disorder, unspecified; F32.A Depression, unspecified; M54.50 Low back pain, unspecified; G89.29 Other chronic pain; R63.4 Abnormal weight loss; G57.93 Unspecified mononeuropathy of bilateral lower limbs; Z85.038 Personal history of other malignant neoplasm of large intestine | CPT/HCPCS: 96127; 99212 ==

== ENCOUNTER 2024-12-09 09:14 | Outpatient (AMB) | payer OTHER, SELFPAY ==
--- NOTE | 2024-12-09 09:31 | A.OFFVIS_ITS ---
Vital Signs 12/09/24 09:33 Height 5 ft 7 in Weight 124 lb 5.451 oz BMI 19.5 BP 102/72 Blood Pressure Location Rt brachial Position Sitting Pulse 90 Pulse Source Pulse Oximeter Pulse Oximetry (%) 97 Oxygen Delivery Method Room Air Intake Visit Reasons: Type 2 diabetes mellitus without complications Intake Note: New patient internally referred by PCP for T2DM. Last Diabetic Eye exam: Due over 2 years, Needs a referral. Last Podiatry Visit: Does not see a Radioisotope Technologist. Requesting referral, states toes are feel numb. Random Glucose: HI mg/dl > 600 at 9:43 am, HI mg/dl >600 at 9:44 am HgA1C: >14.0% 12/09/2024 Loan Servicing Officer Required: No Accompanied by: Self / Same As Patient Allergies bee pollen Allergy (Mild, Verified 12/09/24 10:39) Vomiting HPI Comments Details: This is a 49-year-old male with a past medical history of colon cancer, lower extremity neuropathy, anxiety, depression, hyperlipidemia, GERD, type 2 diabetes, obesity , CHF and hypertension presenting for initial consult for diabetic management. He is here with his girlfriend, Maria E. POC is over 600 today. Patient reports he administered 13 units of NovoLog and 50 units of Lantus this morning. Patient says he had toast and milk and had 2 bottles of water. He endorses worsening blurry vision over the past few weeks despite wearing glasses. A week or so ago he also had vomiting for 4 days. He endorses significant fatigue, and he has been unable to work due to these symptoms. He has lost 100 lb over the past 2 years since being diagnosed with diabetes which he says was at [facility] when he was admistted for heart failure and sepsis. Patient reports admission for DKA a year or 2 ago at [facility]. Endorses constant polyuria and polydipsia. He was evaluated at his primary care office on 11/28/24. Hemoglobin A1c reported ly 14% that day; no POC from that visit. Patient has not been checking blood glucose at home. Denies known family history of type 1 or type 2 diabetes. Hemoglobin a1c over 14% today. Current medication regimen: NovoLog per sliding scale, Lantus 50 units every morning, metformin 1000 mg twice a day NovoLog sliding scale: 13-18 three times daily before meals. Patient says he has a scale written down at home. Patient reports Lantus Kaiaostar requires prior authorization, and he is about to run out of this medicine. He is also running out of syringes for NovoLog vials. Eye exam: Overdue, referred today Podiatry: Requests referral, placed today Complications: neuropathy, no known, nephropathy but he is due for labs The patient takes Entresto for heart failure. Hyperlipidemia: treated with fenofibrate 120 mg daily and rosuvastatin 40 mg daily. Overdue for labs. Patient's current contact information: [phone] [email or web address] ROS: Constitutional: + weight loss and fatigue, denies fevers or chills Eyes: +blurry vision Respiratory: No shortness of breath Cardiovascular: No chest pain Neurologic: +headache, +dizziness, +lower extremity neuropathy Endocrine: see HPI Physical exam: Constitutional: Alert, in no distress. Appears fatigued and low weight. Eyes: Pupils are equal, round and reactive to light Mouth: Dry Neck: Supple, Full range of motion. No lymphadenopathy. Respiratory: Clear to auscultation. Cardiovascular: S1 S2 regular. No murmurs. Neurologic: No focal neurological deficits Extremities: No edema. Psychiatric: Normal mood and affect [facility] Medical History (Updated 12/09/24 @ 10:36 by HAL Luther) Blurry vision Hyperglycemia Type 2 diabetes mellitus with diabetic neuropathy, unspecified No pertinent past medical history Surgical History H/O heart artery stent Family History Sister Heart attack Maternal Uncle FHx: mental illness Mother Substance abuse Father Substance abuse Social History (Updated 11/28/24 @ 11:05 by Maria Eugenia Sewell MA) Housing: Condominium Alcohol intake: current Patient Tobacco Use Status: Current everyday Tobacco user Tobacco use type: Cigarette e-Cigarette/Vaping Use: Never Used Second Hand Smoke Exposure: No Substance Use Type: Marijuana service: No Current occupational status: employed 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 Current occupational exposures/hazards: No Cognitive needs: No Hearing needs: No Vision needs: Yes Physical Exam Vital Signs: BMI result Body Mass Index 19.5 Results AMB Hemoglobin A1c AMB Hemoglobin A1c > 14.0 % Last Edit by FRANKIE Norris on 12/09/24 09:56 Results Reviewed Results Reviewed: Laboratory Tests 02/07/23 03/28/23 04/09/23 11:33 17:05 11:36 Plt Count 438 H Hgb A1c (Clinic) 12 H AST 22 ALT 24 Triglycerides 367 H Cholesterol 316 H LDL Cholesterol, Calc 203 H HDL Cholesterol 40 L TSH 2.03 06/28/23 14:19 Plt Count Hgb A1c (Clinic) 14 H AST ALT Triglycerides Cholesterol LDL Cholesterol, Calc HDL Cholesterol TSH Laboratory Tests 02/07/23 11:33 Creatinine 1.06 Estimated GFR > 60 Assessment & Plan Assessment & Plan (1) Type 2 diabetes mellitus with diabetic neuropathy, unspecified: Code(s): E11.40 - Type 2 diabetes mellitus with diabetic neuropathy, unspecified Category: Medical (2) Blurry vision: Code(s): H53.8 - Other visual disturbances Category: Medical (3) Hyperglycemia: Code(s): R73.9 - Hyperglycemia, unspecified Category: Medical Plan In summary this is a 49-year-old male who presented today for initial consult for diabetic management with severe, symptomatic hyperglycemia. Advised patient a risks of hyperglycemia in this setting including DKA and and end-organ damage. Patient agreeable to going to the emergency department from this visit. Patient declined the ambulance, and he declined escort from the office and wheelchair. I spoke with his girlfriend who is walking him over to the emergency department after this visit. I called the emergency room with an expect. I am sending a message to [employer] to assist the patient with resources as he is unable to work at this time. I placed an order for labs including testing for type 1 diabetes given weight loss of 100 lb over the past 2 years, history of DKA and severe hyperglycemia. I am sending a refill on syringes for NovoLog. We will adjust his sliding scale after hospitalization. I am sending Toujeo 60 units to replace Lantus. This is medically necessary as he continues with severe hyperglycemia despite Lantus, and Lantus is not covered. Sending ketone urine strips and glucose tablets. Ordered continuous glucose monitor. Referrals placed to prosthodontist/educator and dietitian. Patient will set up a follow up in 1 week from today, but we will reach out to him tomorrow. Orders: Orders Microalbumin, Random (w Creat) Today E11.9 - Type 2 diabetes mellitus without complications, E66.9 - Obesity, unspecified, E78.5 - Hyperlipidemia, unspecified Aspartate Amino Transferase Today E11.9 - Type 2 diabetes mellitus without complications, E66.9 - Obesity, unspecified, E78.5 - Hyperlipidemia, unspecified Lipid Panel Today E11.9 - Type 2 diabetes mellitus without complications, E66.9 - Obesity, unspecified, E78.5 - Hyperlipidemia, unspecified Creatinine Today E11.9 - Type 2 diabetes mellitus without complications, E66.9 - Obesity, unspecified, E78.5 - Hyperlipidemia, unspecified Islet Cell Antibody Scrn/Titer Today R73.9 - Hyperglycemia, unspecified Alanine Aminotransferase Today E11.9 - Type 2 diabetes mellitus without complications, E66.9 - Obesity, unspecified, E78.5 - Hyperlipidemia, unspecified, R79.89 - Other specified abnormal findings of blood chemistry Vitamin B12 Today E11.9 - Type 2 diabetes mellitus without complications, E66.9 - Obesity, unspecified, E78.5 - Hyperlipidemia, unspecified, Z91.89 - Other specified personal risk factors, not elsewhere classified AMB Hemoglobin A1c Today E11.40 - Type 2 diabetes mellitus with diabetic neuropathy, unspecified C Peptide Today R73.9 - Hyperglycemia, unspecified Glutamic acid decarboxylase Ab Today R73.9 - Hyperglycemia, unspecified Referrals Nurse Navigator Referral E11.40 - Type 2 diabetes mellitus with diabetic neuropathy, unspecified, G57.93 - Unspecified mononeuropathy of bilateral lower limbs, H53.8 - Other visual disturbances, R73.9 - Hyperglycemia, unspecified Drive Away Driver Nutrition Referral E11.65 - Type 2 diabetes mellitus with hyperglycemia Podiatry Referral E11.9 - Type 2 diabetes mellitus without complications, G57.93 - Unspecified mononeuropathy of bilateral lower limbs Ophthalmology Referral E11.9 - Type 2 diabetes mellitus without complications Diabetes Education Referral E11.65 - Type 2 diabetes mellitus with hyperglycemia Medications: New blood-glucose,nematologist,cont (Mobile FactoryStyle Sunny 3 [place]) Use daily to monitor blood glucose levels continuously. 1 ea 0RF acetone (urine) test (Ketone Urine Test strips) As directed 100 ea 0RF insulin syringe-needle U-100 (CareTouch Insulin Syringe) As directed to administer aspart insulin three times daily 300 ea 5RF blood-glucose sensor (FreeStyle Sunny 3 Plus Sensor device) Apply 1 new sensor every 15 days as directed to monitor blood glucose continuously. 2 ea 11RF E16.2 - Hypoglycemia, unspecified, R73.03 - Prediabetes glucose (Dex4 Glucose) Until symptoms of low blood sugar resolve 16 grams (4 x 4 gram) PO Q15M PRN 10 tabs 3RF low blood sugar insulin glargine U-300 conc (Toujeo Max U-300 SoloStar) Replaces Lantus. 60 units (0.2 mL) subcut DAILY 9 mL 5RF Changed From pen needle, diabetic (BD Ultra-Fine Micro Pen Needle) As directed 100 ea 2RF E11.9 - Type 2 diabetes mellitus without complications To pen needle, diabetic As directed 200 ea 5RF E11.9 - Type 2 diabetes mellitus without complications Discontinued empagliflozin (Jardiance) Discontinued Reason: Doctor's Order 10 mg PO DAILY 30 days 30 tabs 3RF Patient Instructions: I am sending you to the emergency department today due to symptoms related to high blood sugar and severely elevated blood sugar in the office. I am submitting a prescription for Toujeo to the pharmacy to replace Lantus and increasing the dose to 60 units daily. We can discuss adjusting your sliding scale for NovoLog after you are released from the hospital. I submitted a prescription for syringes for NovoLog to the pharmacy. I am running blood tests to screen for type 1 diabetes. I will send a message to the Community navigator in [place]. I placed referrals to Ophthalmology and Podiatry. If you experience low blood sugar, treat this by eating a chewable fruit candy like skittles or jelly beans (about 8 pieces), 4 ounces (1/2 cup) of fruit juice (not diet), 1 tablespoon of honey or 4 glucose tablets. If your blood sugar is under 55, take double the amount of one of the above. Recheck your blood sugar in 15 minutes. Diabetic ketoacidosis (DKA) A serious condition that can lead to diabetic coma (passing out for a long time) or even When your cells don't get the glucose they need for energy, your body begins to burn fat for energy, which produces ketones. Ketones are chemicals that the body creates when it breaks down fat to use for energy. The body does this when it doesn?t have enough insulin to use glucose, the body?s normal source of energy. When ketones build up in the blood, they make it more acidic. They are a warning sign that your diabetes is out of control or that you are getting sick. Symptoms of Diabetic Ketoacidosis (DKA) DKA usually develops slowly. But when vomiting occurs, this life-threatening condition can develop in a few hours. Early symptoms include the following: ? Thirst or a very dry mouth ? Frequent urination ? High blood glucose (blood sugar) levels ? High levels of ketones in the urine Then, other symptoms appear: ? Constantly feeling tired ? Dry or flushed skin ? Nausea, vomiting, or abdominal pain ? (Vomiting can be caused by many illnesses, not just ketoacidosis. If vomiting continues for more than 2 hours, contact your health care provider.) ? Difficulty breathing ? Fruity odor on breath ? A hard time paying attention, or confusion When should you test for ketones? It is advisable to check for ketones under the following conditions when: Your blood glucose is higher than 250mg/dl. Feeling nauseated, throwing up, or have pains in your abdominal region. Have a cold or flu. Have general body fatigue. Feel thirsty or have a very dry mouth. Have flushed skin. Have a fruity breath or a hard time breathing. You feel confused or in fog. Negative, trace or light ketones: hydrate, bring sugars down with insulin You should go to the ER if you have moderate or large ketones. Coding Level of Care Code New Pt Level 5 (01830) Complex EM visit Add On G2211 Diagnoses Type 2 diabetes mellitus with diabetic neuropathy, unspecified E11.40 Blurry vision H53.8 Hyperglycemia R73.9 Time Spent (min) 65 Comment Chart review, patient education and direct care, completing documentation
[2024-12-09 09:33] VITALS: BP 102/72; PULSE 90; O2SAT 97; BMI 19.5
[2024-12-09 09:48] LABS: Glucose, Whole Blood > 600 mg/dL (60-115)
== END 2024-12-09 10:11 | disposition home or self-care (01) ==
LOC: HO.ENCR 09:15
PROVIDERS: PCP Nurse Practitioner Family; Visit Provider Physician Assistant Medical
DX: E11.40 Type 2 diabetes mellitus with diabetic neuropathy, unspecified (principal); E11.65 Type 2 diabetes mellitus with hyperglycemia; Z79.4 Long term (current) use of insulin; H53.8 Other visual disturbances

== ENCOUNTER → 2024-12-09 09:14 | Outpatient (BNVA) | payer OTHER, SELFPAY | PROVIDERS: PCP Nurse Practitioner Family; Visit Provider Physician Assistant Medical | DX: E11.40 Type 2 diabetes mellitus with diabetic neuropathy, unspecified (principal); E11.65 Type 2 diabetes mellitus with hyperglycemia; E78.5 Hyperlipidemia, unspecified; H53.8 Other visual disturbances | CPT/HCPCS: 82947; 83036; 99202 ==

== ENCOUNTER 2024-12-09 10:25 | Emergency (ER) | payer OTHER, SELFPAY ==
[2024-12-09 10:37] VITALS: BP 118/79; PULSE 87; RESP 16; TEMP 36.3; O2SAT 97; BMI 19.6
[2024-12-09 10:56] LABS: MANUAL DIFF FLAG NO
[2024-12-09 10:58] LABS: Basophils Absolute Auto 0.1 X10*3/uL (0.0-0.2); Basophils Percent Auto 0.6 % (0-2); Eosinophils Absolute Auto 0.1 X10*3/uL (0.0-0.4); Eosinophils Percent Auto 0.8 % (0-4); Hematocrit 42.5 % (42.0-52.0); Imm Gran Abs Auto 0.06 X10*3/uL (0.00-0.03); Imm Gran Pct Auto 0.6 % (0.0-0.4); Lymphocytes Absolute Auto 2.4 X10*3/uL (1.2-4.9); Lymphocytes Percent Auto 23.5 % (20-40); Mean Corpuscular HGB Conc 35.3 g/dl (31.0-36.0); Mean Corpuscular Hemoglobin 29.2 pg (27.0-33.0); Mean Corpuscular Volume 82.7 fL (80.0-98.0); Mean Platelet Volume 8.8 fL (9.4-12.4); Monocytes Absolute Auto 0.6 X10*3/uL (0.1-1.2); Monocytes Percent Auto 5.4 % (2-11); Neutrophils Absolute Auto 7.2 x10*3/uL (2.0-8.3); Neutrophils Percent Auto 69.1 % (45-73); Platelet Count 447 X10*3/uL (160-400); Red Blood Count 5.14 X10*6/uL (4.60-5.80); Red Cell Distribution Width 12.4 % (11.0-16.0); White Blood Count 10.4 X10*3/uL (4.8-10.8)
[2024-12-09 11:00] LABS: Appearance Urine Clear; Color Urine Yellow; Glucose Urine UA >=1000 mg/dL (Negative); Leukocyte Esterase Urine Negative (Negative); Nitrite Urine Negative (Negative); PH 5.5 (5.0-9.0); Specific Gravity - Urine >= 1.030 (1.005-1.025); UMIC TRIGGER UACC YES; Urine Blood Negative (Negative); Urine Ketones 15 mg/dL (Negative); Urine Protein Negative (Neg-Trace)
[2024-12-09 11:02] LABS: Venous Blood Gas Refer to POC result
[2024-12-09 11:03] LABS: VBG Base Excess 3.7 mmol/L; VBG HCO3 30 mmol/L (22-26); VBG pCO2 54 mmHg; VBG pH 7.35 (7.32-7.43); VBG pO2 29 mmHg
[2024-12-09 11:08] LABS: Bacteria Urine None Seen (None Seen); Hyaline Casts Urine 0-2 /LPF (0-2); RBC Urine 0-2 /HPF (0-2); Squamous Epithelial Cell Urine 0-2 /HPF (0-2); WBC Urine 0-5 /HPF (0-5)
[2024-12-09 11:17] LABS: Alanine Aminotransferase 28 U/L (0-40); Albumin Level 4.5 g/dL (3.5-5.0); Anion Gap 16 (12-20); Aspartate Amino Transferase 17 U/L (5-37); Beta-Hydroxybutyrate 1.41 mmol/L (0.02-0.27); Bilirubin Total 0.3 mg/dL (0.0-1.0); Blood Urea Nitrogen 22 mg/dL (9-16); Calcium 9.5 mg/dL (8.4-10.2); Carbon Dioxide 27 mmol/L (22-29); Chloride 91 mmol/L (96-108); Creatinine Clr Calc Pharmacy 64.2; Estimated Glomerular Filt Rate > 60; Glucose Random 619 mg/dL (60-115); Potassium 4.6 mmol/L (3.3-5.1); Sodium 129 mmol/L (135-145)
[2024-12-09 11:26] LABS: Alkaline Phosphatase 107 U/L (39-117)
[2024-12-09] MEDS: Insulin Regular, Human 100 UNIT/ML 10 ML VIAL 10 UNIT IVPUSH (11:30)
[2024-12-09] MEDS: Lactated Ringers 1,000 ML 999 ML IV ×2 (11:31)
[2024-12-09 12:18] LABS: Glucose, Whole Blood 315 mg/dL (60-115)
--- NOTE | 2024-12-09 12:22 | ED_ITS ---
HPI - General Adult General Chief complaint: Recheck/Abnormal Lab/Rx Stated complaint: High blood sugar Time Seen by Provider: 12/09/24 11:15 Source: patient Mode of arrival: ambulatory Limitations: no limitations History of Present Illness HPI narrative: This is a 49-year-old man with a past medical history of colon cancer, lower extremity neuropathy, anxiety/depression, hyperlipidemia, GERD, type 2 diabetes mellitus, obesity, CHF and hypertension who presents for evaluation of hyperglycemia. He states that he has been having elevated blood glucose over 400. He states that he has not been eating sugars and tries to eat low sugar or 0 sugar foods. He states having blurry vision without vision loss or diplopia. He states feeling tired. He states no fevers, chills, cough or congestion. He states no vomiting or diarrhea. He states polyuria polydipsia. He states using sliding scale insulin. He states that he takes 50 units of Lantus at night, but states that he missed his dose yesterday and states he does not have much of it left. He also states chronic neuropathy in his bilateral feet and states that gabapentin is not helping. He states no chest pain or dyspnea. Related Data Home Medications ?Medication ?Instructions ?Recorded ?Confirmed sacubitril 24 mg-valsartan 26 mg 1 tab PO BID 06/14/22 11/28/24 tablet (Entresto) ticagrelor 60 mg tablet 60 mg PO Q12H 01/12/23 11/28/24 insulin aspart U-100 100 unit/mL 1 sliding scale dose subcut 11/28/24 11/28/24 subcutaneous solution (Novolog USEASDIRECTD U-100 Insulin aspart) Previous Rx's ?Medication ?Instructions ?Recorded epinephrine 0.3 mg/0.3 mL 0.3 mg (0.3 mL) IM Q4H PRN 06/28/22 injection, auto-injector (EpiPen anaphylaxis #2 ea 2-Keshav) blood pressure test kit-large #1 ea 10/25/22 omeprazole 20 mg capsule,delayed 20 mg PO DAILY 30 days #30 caps 11/24/22 release carvedilol 3.125 mg tablet 6.25 mg (2 x 3.125 mg) PO BID 30 11/27/22 days #120 tabs blood sugar diagnostic #50 ea 12/12/22 fenofibrate 120 mg tablet 120 mg PO DAILY 30 days #30 tabs 02/09/23 rosuvastatin 40 mg tablet 40 mg PO DAILY 30 days #30 tabs 02/09/23 blood-glucose meter (FreeStyle #1 ea 02/13/23 Lite Meter kit) blood sugar diagnostic (FreeStyle #100 ea 11/28/24 Lite Strips) fluoxetine 20 mg tablet 20 mg PO DAILY 30 days #30 tabs 11/28/24 gabapentin 600 mg tablet 600 mg PO TID 30 days #90 tabs 11/28/24 hydroxyzine HCl 25 mg tablet 25 mg PO TID PRN anxiety #90 tabs 11/28/24 insulin glargine 100 unit/mL (3 50 unit (0.5 mL) subcut QPM #15 mL 11/28/24 mL) subcutaneous pen (Lantus Solostar U-100 Insulin) lancets 28 gauge (Easy Touch #100 ea 11/28/24 Lancets) magnesium oxide 500 mg PO DAILY 30 days #30 tabs 11/28/24 metformin 1,000 mg tablet 1,000 mg PO BIDWMEAL 30 days #60 11/28/24 tabs acetone (urine) test (Ketone Urine #100 ea 12/09/24 Test strips) blood-glucose sensor (FreeStyle #2 ea 12/09/24 Sunny 3 Plus Sensor device) blood-glucose,instructional technology specialist,cont #1 ea 12/09/24 (FreeStyle Sunny 3 Enterprise) glucose 4 gram chewable tablet 16 g (4 x 4 gram) PO Q15M PRN low 12/09/24 (Dex4 Glucose) blood sugar #10 tabs insulin glargine U-300 conc 300 60 unit (0.2 mL) subcut DAILY #9 mL 12/09/24 unit/mL (3 mL) subcutaneous pen (Toujeo Max U-300 SoloStar) insulin syringe-needle U-100 0.5 #300 ea 12/09/24 mL 31 gauge x 5/16 (CareTouch Insulin Syringe) pen needle, diabetic 29 gauge x #200 ea 12/09/24 1/2 pen needle, diabetic 32 gauge x #200 ea 12/09/24 1/4 Allergies Allergy/AdvReac Type Severity Reaction Status Date / Time bee pollen Allergy Mild Vomiting Verified 12/09/24 10:39 Review of Systems 2 Review of Systems: ROS as per HPI [facility] Past Medical History Medical History (Updated 12/09/24 @ 12:35 by Henrik Langford MD) Blurry vision Hyperglycemia Type 2 diabetes mellitus with diabetic neuropathy, unspecified No pertinent past medical history Surgical History H/O heart artery stent Family History Family History Sister Heart attack Maternal Uncle FHx: mental illness Mother Substance abuse Father Substance abuse Social History Social History Housing: Condominium Alcohol intake: current Patient Tobacco Use Status: Current everyday Tobacco user Tobacco use type: Cigarette e-Cigarette/Vaping Use: Never Used Second Hand Smoke Exposure: No Substance Use Type: Marijuana service: No Current occupational status: employed 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 Current occupational exposures/hazards: No Cognitive needs: No Hearing needs: No Vision needs: Yes Physical Exam ED Vital Signs: Vital Signs - 24 hr 12/09/24 10:37 Temperature 97.3 F Pulse Rate 87 Respiratory Rate 16 Blood Pressure 118/79 Pulse Oximetry 97 Oxygen Delivery Method Room Air BMI result Body Mass Index 19.6 Gen: NAD, AOx3 HEENT: NCAT, EOMI, dry oral mucosa CV: RRR, no peripheral pitting edema Pulm: CTAB, no increased work of breathing GI: Soft, NTND, no rebound, guarding or rigidity Neuro: Grossly nonfocal, awake and alert Skin: Warm, dry, increased skin turgor Medications Administered Discontinued Medications Generic Name Dose Route Start Last Admin Trade Name Freq PRN Reason Stop Dose Admin Gabapentin 600 mg 12/09/24 12:23 12/09/24 12:30 Gabapentin 600 Mg Tablet PO 12/09/24 12:24 600 mg ONCE ONE Administration Lactated Ringer's 1,000 mls @ 999 mls/hr 12/09/24 11:15 12/09/24 11:31 Lr IV 12/09/24 12:15 999 mls/hr .Q1H1M ONE Administration Lactated Ringer's 1,000 mls @ 999 mls/hr 12/09/24 11:16 12/09/24 11:31 Lr IV 12/09/24 12:16 999 mls/hr .Q1H1M ONE Administration Insulin Human Regular 10 unit 12/09/24 11:17 12/09/24 11:30 Insulin Regular, Human 100 Unit/Ml 10 Ml Vial IVPUSH 12/09/24 11:18 10 unit ONCE ONE Administration Medical Decision Making Medical Decision Making [facility] Narrative: Differential diagnosis includes, but is not limited to hyperglycemia, diabetic ketoacidosis, electrolyte derangement, acute kidney injury. Patient is afebrile and hemodynamically stable on room air. Exam is benign and reassuring albeit notable for exam findings consistent with hypovolemia corroborated with elevated urine specific gravity for which patient is provided IV fluids in is likely secondary to osmotic diuresis due to hyperglycemia. I reviewed the patient's labs as below. Patient is treated supportively with IV fluids and 10 units IV insulin regular. This patient has elected to leave AGAINST MEDICAL ADVICE. In my opinion, the patient has capacity for decision making and to leave AGAINST MEDICAL ADVICE. 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 The patient's stated reason for leaving AGAINST MEDICAL ADVICE is that he does not want to miss an appointment he has regarding his home. I recommended admission for continued blood glucose control. I explained the risks of leaving without further workup or treatment which includes, but is not limited to , serious injury, permanent disability and worsening of present condition. I explained the benefits of staying for treatment which includes, but is not limited to treatment, medicine and if required intervention for stabilization. The patient verbalized their understanding of the risks of leaving AGAINST MEDICAL ADVICE and the benefits of treatment. I adamantly advised the patient to reconsider, but despite extensive discussion and recommendations to stay the patient elected to leave AGAINST MEDICAL ADVICE. Admission/Observation Consideration of admission/observation: Escalation of care including admission/observation considered Consult Healthcare Provider Management of the patient was discussed with: Hospitalist I discussed the patient's case and management with the hospitalist Dr. Leger Lab Data [facility] Lab Attestation statement: I reviewed the patient's lab results. CBC notable for a thrombocytosis with a platelet count 447 (previous 438), venous blood gas demonstrates no acid-base derangement ruling out diabetic ketoacidosis, metabolic panel with sodium 129 consistent with pseudo hyponatremia in the setting of hyperglycemia. Serum glucose greater than 600 improving to 315 on POC glucose. Hemoglobin A1c greater than 14.0, which is unchanged from previous hemoglobin A1c in June 2023. Beta hydroxy butyrate elevated at 1.41 which this is consistent with ketosis without acidosis in the setting of hyperglycemia and diabetes mellitus. Urinalysis with glucosuria and no findings of urinary tract infection. 12/09/24 10:52 12/09/24 10:52 Labs: Lab Results 12/09/24 12/09/24 12/09/24 Range/Units 10:52 10:57 12:15 WBC 10.4 (4.8-10.8) X10*3/uL RBC 5.14 (4.60-5.80) X10*6/uL Hgb 15.0 (14.0-18.0) g/dl Hct 42.5 (42.0-52.0) % MCV 82.7 (80.0-98.0) fL MCH 29.2 (27.0-33.0) pg MCHC 35.3 (31.0-36.0) g/dl RDW 12.4 (11.0-16.0) % Plt Count 447 H (160-400) X10*3/uL MPV 8.8 L (9.4-12.4) fL Immature Gran % (Auto) 0.6 H (0.0-0.4) % Neut % (Auto) 69.1 (45-73) % Lymph % (Auto) 23.5 (20-40) % [place] % (Auto) 5.4 (2-11) % Eos % (Auto) 0.8 (0-4) % Baso % (Auto) 0.6 (0-2) % Lymph # (Auto) 2.4 (1.2-4.9) X10*3/uL [place] # (Auto) 0.6 (0.1-1.2) X10*3/uL Eos # (Auto) 0.1 (0.0-0.4) X10*3/uL Baso # (Auto) 0.1 (0.0-0.2) X10*3/uL Abs Immat Gran (auto) 0.06 H (0.00-0.03) X10*3/uL Absolute Neuts (auto) 7.2 (2.0-8.3) x10*3/uL Absolute Nucleated RBC 0.000 (0.0-0.012) X10*3/uL Nucleated RBC % (auto) 0.0 (0.0-0.2) /100WBC VBG pH 7.35 (7.32-7.43) VBG pCO2 54 mmHg VBG pO2 29 mmHg VBG HCO3 30 H (22-26) mmol/L VBG O2 Saturation 37.0 % VBG Base Excess 3.7 mmol/L Sodium 129 L (135-145) mmol/L Potassium 4.6 (3.3-5.1) mmol/L Chloride 91 L (96-108) mmol/L Carbon Dioxide 27 (22-29) mmol/L Anion Gap 16 (12-20) BUN 22 H (9-16) mg/dL Creatinine 1.12 (0.5-1.4) mg/dL Estim Creat Clear Calc 64.2 Estimated GFR > 60 POC Glucose 315 H (60-115) mg/dL Random Glucose 619 H* (60-115) mg/dL Calcium 9.5 (8.4-10.2) mg/dL Total Bilirubin 0.3 (0.0-1.0) mg/dL AST 17 (5-37) U/L ALT 28 (0-40) U/L Alkaline Phosphatase 107 (39-117) U/L Total Protein 8.0 (6.5-8.0) g/dL Albumin 4.5 (3.5-5.0) g/dL Beta-Hydroxybutyrate 1.41 H (0.02-0.27) mmol/L Urine Color Yellow Urine Appearance Clear Urine pH 5.5 (5.0-9.0) Ur Specific [place] >= 1.030 H (1.005-1.025) Urine Protein Negative (Neg-Trace) mg/dL Urine Glucose (UA) >=1000 H (Negative) mg/dL Urine Ketones 15 (Negative) mg/dL Urine Blood Negative (Negative) Urine Nitrite Negative (Negative) Ur Leukocyte Esterase Negative (Negative) Urine RBC 0-2 (0-2) /HPF Urine WBC 0-5 (0-5) /HPF Ur Squamous Epith Cells 0-2 (0-2) /HPF Urine Bacteria None Seen (None Seen) Hyaline Casts 0-2 (0-2) /LPF Discharge Plan Discharge Clinical Impression: Acute hyperglycemia Patient Disposition: Left Against Medical Advice Instructions: Diabetic Hyperglycemia (ED) Additional Instructions: You were evaluated in the emergency room for high blood sugar. You were treated with IV fluids and insulin. You were recommended hospitalization for improved sugar control, but decided to leave against medical advise. 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 Return to the emergency room with any new concerns or symptoms. Prescriptions: No Action carvedilol 3.125 mg tablet 6.25 mg PO BID 30 Days Qty: 120 3RF (DME) blood sugar diagnostic Strip See Rx Instructions .Route Qty: 50 0RF Rx Instructions: As directed rosuvastatin 40 mg tablet 40 mg PO DAILY 30 Days Qty: 30 3RF fenofibrate 120 mg tablet 120 mg PO DAILY 30 Days Qty: 30 3RF (DME) blood-glucose meter [FreeStyle Lite Meter] Kit See Rx Instructions .MEDSUPPLY Qty: 1 0RF Rx Instructions: As directed (DME) pen needle, diabetic 29 gauge x 1/2 needle See Rx Instructions .Route Qty: 200 5RF Rx Instructions: As directed Entresto 24-26 mg tablet 1 tab PO BID epinephrine [EpiPen 2-Keshav] 0.3 mg/0.3 mL auto-injector 0.3 mg IM Q4H PRN (Reason: anaphylaxis) Qty: 2 0RF omeprazole 20 mg capsule,delayed release(DR/EC) 20 mg PO DAILY 30 Days Qty: 30 3RF (DME) blood pressure test kit-large Kit See Rx Instructions .Route Qty: 1 0RF Rx Instructions: As directed ticagrelor 60 mg tablet 60 mg PO Q12H (DME) FreeStyle Sunny 3 Enterprise Misc See Rx Instructions .ROUTE .MEDSUPPLY Qty: 1 0RF Rx Instructions: Use daily to monitor blood glucose levels continuously. (DME) FreeStyle Sunny 3 Plus Sensor Device See Rx Instructions .ROUTE .MEDSUPPLY Qty: 2 11RF Rx Instructions: Apply 1 new sensor every 15 days as directed to monitor blood glucose continuously. (DME) Ketone Urine Test Strip See Rx Instructions .ROUTE .MEDSUPPLY Qty: 100 0RF Rx Instructions: As directed glucose [Dex4 Glucose] 4 gram tablet,chewable 16 g PO Q15M PRN (Reason: low blood sugar) Qty: 10 3RF Rx Instructions: Until symptoms of low blood sugar resolve insulin glargine U-300 conc [Toujeo Max U-300 SoloStar] 300 unit/mL (3 mL) insulin pen 60 unit subcut DAILY Qty: 9 5RF Rx Instructions: Replaces Lantus. (DME) pen needle, diabetic 32 gauge x 1/4 needle See Rx Instructions .MEDSUPPLY Qty: 200 5RF Rx Instructions: As directed (DME) insulin syringe-needle U-100 [CareTouch Insulin Syringe] 0.5 mL 31 gauge x 5/16 syringe See Rx Instructions .Route Qty: 300 5RF Rx Instructions: As directed to administer aspart insulin three times daily insulin aspart U-100 [Novolog U-100 Insulin aspart] 100 unit/mL solution 1 sliding scale dose subcut USEASDIRECTD metformin 1,000 mg tablet 1,000 mg PO BIDWMEAL 30 Days Qty: 60 3RF insulin glargine [Lantus Solostar U-100 Insulin] 100 unit/mL (3 mL) insulin pen 50 unit subcut QPM Qty: 15 3RF fluoxetine 20 mg tablet 20 mg PO DAILY 30 Days Qty: 30 3RF hydroxyzine HCl 25 mg tablet 25 mg PO TID PRN (Reason: anxiety) Qty: 90 3RF magnesium oxide 500 mg magnesium tablet 500 mg PO DAILY 30 Days Qty: 30 3RF gabapentin 600 mg tablet 600 mg PO TID 30 Days Qty: 90 3RF (DME) FreeStyle Lite Strips Strip See Rx Instructions .MEDSUPPLY Qty: 100 4RF Rx Instructions: As directed TID (DME) lancets [Easy Touch Lancets] 28 gauge misc See Rx Instructions .MEDSUPPLY Qty: 100 4RF Rx Instructions: As directed Print Language: Jamaican
[2024-12-09] MEDS: Gabapentin 600 MG TABLET PO (12:30)
[2024-12-09 12:41] VITALS: BP 118/79; PULSE 87; RESP 16; TEMP 36.3; O2SAT 97
[2024-12-09 12:53] LABS: Glucose, Whole Blood > 600 mg/dL (60-115)
[2024-12-09 12:54] LABS: Glucose, Whole Blood > 600 mg/dL (60-115)
== END 2024-12-09 12:41 | disposition left against medical advice (07) ==
PROVIDERS: Emergency Provider Emergency Medicine; PCP Nurse Practitioner Family
DX: E11.65 Type 2 diabetes mellitus with hyperglycemia (principal); R79.89 Other specified abnormal findings of blood chemistry; I10 Essential (primary) hypertension; R35.89 Other polyuria; Z79.4 Long term (current) use of insulin; Z79.899 Other long term (current) drug therapy
CPT/HCPCS: 36415; 80053; 81001; 81003; 82010; 82803; 82947; 85025; 96374; 99284; J7120

== ENCOUNTER 2024-12-16 13:09 | Outpatient (AMB) | payer OTHER, SELFPAY ==
--- NOTE | 2024-12-16 13:22 | MHC.OFFVIS ---
Vital Signs 12/16/24 13:25 Height 5 ft 7 in Weight 134 lb 7.712 oz BMI 21.1 BP 88/60 L Blood Pressure Location Rt brachial Position Sitting Pulse 92 Pulse Source Pulse Oximeter Pulse Oximetry (%) 95 Oxygen Delivery Method Room Air Intake Visit Reasons: diabetes Intake Note: Patient present today for T2DM. Last Diabetic Eye exam: Due over 2 years. Last Podiatry Visit: Does not see a Playroom Attendant Random Glucose: 388 mg/dl HgA1C: >14.0% 12/09/2024 Screen Making Supervisor Required: No Accompanied by: Self / Same As Patient Allergies bee pollen Allergy (Mild, Verified 12/16/24 13:26) Vomiting HPI Comments Details: This is a 49-year-old male with a past medical history of colon cancer, lower extremity neuropathy, anxiety, depression, hyperlipidemia, GERD, type 2 diabetes, obesity , CHF and hypertension presenting for diabetic management. Patient was diagnosed with diabetes 2 years ago, and he reported 100 lb weight loss over the past 2 years. He also endorsed a history of admission for DKA a year or 2 ago at [facility]. At his initial consult on 12/09/2024 he was referred to the ED due to hyperglycemia. He was treated and admission was recommended for glycemic management, but he left against medical advice. His sodium level was low at the ED likely due to hyperglycemia. He was also given IV fluids for dehydration. Since then he is taking his medications regularly. He brought his glucometer with him, and his blood sugars have improved. He did not get the Sunny 3 plus CGM yet, but it was approved by the insurance. His lowest glucose was 84. He is having some shakiness and hunger when his blood sugar is under 200. He has put on 9 lb within the past week which he attributes to taking insulin regularly again. Denies leg swelling. Polyuria and polydipsia have decreased. Hemoglobin A1c was over 14% at his visit on 12/09/2024. Denies known family history of type 1 or type 2 diabetes. He is going to have lab work done tomorrow that I ordered to screen for type 1 diabetes. Current medication regimen: NovoLog per sliding scale, Toujeo 60 units every morning, metformin 1000 mg twice a day and Jardiance 25 mg daily. NovoLog sliding scale: Patient says he has been taking 5 units usually before meals, and he has the scale written down at home, but he does not have it with him. He agreed to call later today with this information. He endorses chronic yeast infection in the groin since he has been on Jardiance. Patient says that he did struggle with alcohol abuse for a couple of years, but he has been sober during the past year. Previous medication: Lantus was discontinued because it is not covered by the insurance. Eye exam: He was contacted to schedule an eye exam after the referral last week. Podiatry: He has been referred to Podiatry. Complications: neuropathy The patient takes Entresto for heart failure. Hyperlipidemia: treated with fenofibrate 120 mg daily and rosuvastatin 40 mg daily. Overdue for labs. Patient's current contact information: [phone] [email or web address] He is struggling with food insecurity. He is not eating regular meals because he does not have money. Skips meals. He has food stamps, but he is still running out of food before being able to get more. He has not been able to work as he has severe neuropathy in his feet and difficulty with vision secondary to uncontrolled diabetes and hyperglycemia. I signed a form for the Department of transitional assistance today, and this was faxed with the patient. I have also put in a referral to [facility] for him. ROS: Constitutional: + weight loss and fatigue though he has gained weight in the past week, denies fevers or chills Eyes: +blurry vision Respiratory: No shortness of breath Cardiovascular: No chest pain Neurologic: +headache, +dizziness, +lower extremity neuropathy Endocrine: see HPI Physical exam: Constitutional: Alert, in no distress. Eyes: Pupils are equal, round and reactive to light Neck: Supple, Full range of motion. No lymphadenopathy. Respiratory: Clear to auscultation. Cardiovascular: S1 S2 regular. No murmurs. Neurologic: No focal neurological deficits Extremities: No edema. Psychiatric: Normal mood and affect [facility] Medical History (Updated 12/16/24 @ 15:03 by HAL Luther) Food insecurity Blurry vision Hyperglycemia Type 2 diabetes mellitus with diabetic neuropathy, unspecified No pertinent past medical history Surgical History H/O heart artery stent Family History Sister Heart attack Maternal Uncle FHx: mental illness Mother Substance abuse Father Substance abuse Social History Housing: Condominium Alcohol intake: current Patient Tobacco Use Status: Current everyday Tobacco user Tobacco use type: Cigarette e-Cigarette/Vaping Use: Never Used Second Hand Smoke Exposure: No Substance Use Type: Marijuana service: No Current occupational status: employed 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 [employer] Current occupational exposures/hazards: No Cognitive needs: No Hearing needs: No Vision needs: Yes Physical Exam Vital Signs: Last Vital Signs Pulse 92 12/16/24 13:25 BP 88/60 L 12/16/24 13:25 Pulse Ox 95 12/16/24 13:25 Oxygen Delivery Method Room Air 12/16/24 13:25 BMI result Body Mass Index 21.1 Results Reviewed Results Reviewed: Laboratory Last Values Glucose (Clinic) 388 mg/dL (60-115) H* 12/16/24 13:30 Laboratory Tests 04/09/23 12/09/24 12/09/24 11:36 09:55 10:52 Sodium 129 L Creatinine 1.12 Estimated GFR > 60 Hgb A1c (Clinic) > 14.0 H AST 17 ALT 28 Triglycerides 367 H Cholesterol 316 H LDL Cholesterol, Calc 203 H HDL Cholesterol 40 L TSH 2.03 Ur Specific [place] >= 1.030 H Urine Ketones 15 Assessment & Plan Assessment & Plan (1) Type 2 diabetes mellitus with diabetic neuropathy, unspecified: Code(s): E11.40 - Type 2 diabetes mellitus with diabetic neuropathy, unspecified Category: Medical (2) Blurry vision: Code(s): H53.8 - Other visual disturbances Category: Medical (3) Hyperglycemia: Code(s): R73.9 - Hyperglycemia, unspecified Category: Medical (4) Food insecurity: Code(s): Z59.41 - Food insecurity Category: Medical Plan In summary this is a 49-year-old male with uncontrolled diabetes with hyperglycemia. I have referred him to [facility]. Today I also referred him to the Eat Well meal kit program for [facility] patient's due to food insecurity. Faxed forms for DTA. He has been referred to the dietitian and peer educator. Sunny 3+ was approved. I sent the prescription again to the pharmacy and advised the patient to call if he is not able to pick it up by tomorrow. He will have blood work done tomorrow. He could not have it done today because he has to take the bus. If it is confirmed he is not a type 1 diabetic I would like to start him on a GLP 1. He picked up the glucose tablets and ketones strips. Reviewed treatment of hypoglycemia and hyperglycemia with the patient. Written instructions provided. Discontinue Jardiance due to yeast infections. Prescribed topical ketoconazole. Follow up with primary care if this does not resolve. Continue Toujeo 60 units every evening. I did not increase this today though he still has some hyperglycemia because he is experiencing symptoms of hypoglycemia with more controlled blood sugars though no true episodes of hypoglycemia. I suspect this is because he has been functioning with blood sugars chronically 400+. Continue Metformin 1000 mg twice daily. Continue Novolog sliding scale. He will call with the scale later today for adjustment. Follow up in 2 weeks for diabetes. Orders: Orders Sodium Today R73.9 - Hyperglycemia, unspecified Medications: New ketoconazole 2% 1 appl topical BID 2 weeks 30 grams 0RF Changed From blood sugar diagnostic (FreeStyle Lite Strips) As directed TID 100 ea 4RF To blood sugar diagnostic (FreeStyle Lite Strips) As directed four times daily. 200 ea 4RF Refilled blood-glucose,human resources training manager,cont (FreeStyle Sunny 3 [place]) Use daily to monitor blood glucose levels continuously. 1 ea 0RF blood-glucose sensor (FreeStyle Sunny 3 Plus Sensor device) Apply 1 new sensor every 15 days as directed to monitor blood glucose continuously. 2 ea 11RF E16.2 - Hypoglycemia, unspecified, R73.03 - Prediabetes Patient Instructions: Bring your sliding scale to the next appointment. Continue Toujeo 60 units every evening. Continue Metformin 1000 mg twice daily. Continue Novolog sliding scale. Please have labs done for Ila Mckenzie. I will refer you to the Eat Well Program. Can you please call me if you don't get the sunny 3 plus sensors and reader from the pharmacy today? If you experience low blood sugar, treat this by eating a chewable fruit candy like skittles or jelly beans (about 8 pieces), 4 ounces (1/2 cup) of fruit juice (not diet), 1 tablespoon of honey or 4 glucose tablets. If your blood sugar is under 55, take double the amount of one of the above. Recheck your blood sugar in 15 minutes. Diabetic ketoacidosis (DKA) A serious condition that can lead to diabetic coma (passing out for a long time) or even When your cells don't get the glucose they need for energy, your body begins to burn fat for energy, which produces ketones. Ketones are chemicals that the body creates when it breaks down fat to use for energy. The body does this when it doesn?t have enough insulin to use glucose, the body?s normal source of energy. When ketones build up in the blood, they make it more acidic. They are a warning sign that your diabetes is out of control or that you are getting sick. Symptoms of Diabetic Ketoacidosis (DKA) DKA usually develops slowly. But when vomiting occurs, this life-threatening condition can develop in a few hours. Early symptoms include the following: ? Thirst or a very dry mouth ? Frequent urination ? High blood glucose (blood sugar) levels ? High levels of ketones in the urine Then, other symptoms appear: ? Constantly feeling tired ? Dry or flushed skin ? Nausea, vomiting, or abdominal pain ? (Vomiting can be caused by many illnesses, not just ketoacidosis. If vomiting continues for more than 2 hours, contact your health care provider.) ? Difficulty breathing ? Fruity odor on breath ? A hard time paying attention, or confusion When should you test for ketones? It is advisable to check for ketones under the following conditions when: Your blood glucose is higher than 250mg/dl. Feeling nauseated, throwing up, or have pains in your abdominal region. Have a cold or flu. Have general body fatigue. Feel thirsty or have a very dry mouth. Have flushed skin. Have a fruity breath or a hard time breathing. You feel confused or in fog. Negative, trace or light ketones: hydrate, bring sugars down with insulin You should go to the ER if you have moderate or large ketones. Coding Level of Care Code Est Pt Level 5 (11420) Complex EM visit Add On G2211 Diagnoses Type 2 diabetes mellitus with diabetic neuropathy, unspecified E11.40 Blurry vision H53.8 Hyperglycemia R73.9 Food insecurity Z59.41 Time Spent (min) 54 Comment Care coordination, direct patient care, chart review, completing documentation
[2024-12-16 13:25] VITALS: BP 88/60; PULSE 92; O2SAT 95; BMI 21.1
[2024-12-16 13:35] LABS: Glucose, Whole Blood 388 mg/dL (60-115)
== END 2024-12-16 14:11 | disposition home or self-care (01) ==
LOC: HO.ENCR 13:10
PROVIDERS: PCP Nurse Practitioner Family; Visit Provider Physician Assistant Medical
DX: E11.40 Type 2 diabetes mellitus with diabetic neuropathy, unspecified (principal); H53.8 Other visual disturbances; Z59.41 Food insecurity

== ENCOUNTER → 2024-12-16 13:09 | Outpatient (BNVA) | payer OTHER, SELFPAY | PROVIDERS: PCP Nurse Practitioner Family; Visit Provider Physician Assistant Medical | DX: E11.40 Type 2 diabetes mellitus with diabetic neuropathy, unspecified (principal); E11.65 Type 2 diabetes mellitus with hyperglycemia; H53.8 Other visual disturbances; Z59.41 Food insecurity; Z79.4 Long term (current) use of insulin; Z79.84 Long term (current) use of oral hypoglycemic drugs | CPT/HCPCS: 82947; 99212 ==

== ENCOUNTER 2025-01-30 12:07 | Outpatient (REF) | payer OTHER, SELFPAY ==
--- OUTSIDE RECORDS SUMMARY | 2025-01-30 12:26 | XMS_ITS | Clinical Summary ---
Author Organization [facility] Address [address] [place] [address] Phone Care Team Providers Care Sewer And Inspector Name Role Phone Cally Rodriguez DOROTHEA Primary Care Provider [phone] Social History Tobacco Use Types Packs/Day Years Used Date Smoking Tobacco: Never Assessed Sex and Gender Information Value Date Recorded Sex Assigned at Not on file Legal Sex Male 8:23 AM EDT Gender Identity Not on file Sexual Orientation Not on file Plan of Treatment Upcoming Encounters Date Type Department Care Team ([facility] st Contact Info) Description 03/04/2025 2:15 PM EDT Consult Orthopedic Surgery - [place] [id number] [phone] Abdirizak Walker DPM [address] [id number] Health Maintenance Due Date Last Done Comments Diabetes: Annual GFR (Glomer ular Filtration Rate) 1975 Diabetes: Annual Foot Exam 09/26/1985 Diabetes: Annual Retina Eye Exam 09/26/1985 DTaP,Tdap,and Td Vaccines (1 - Tdap) 09/26/1994 Hepatitis B Vaccines (1 of 3 - 19+ 3-dose series) 09/26/1994 Pneumococcal Vaccine: Pediat rics (0 to 5 Years) and At-Risk Patients (6 to 49 Years) (1 of 2 - PCV) 09/26/1994 COVID-19 Vaccine (2023-2 5 season) 2024 Cholesterol Screening (Lipid Panel) 12/10/2024 Colorectal Cancer Screening: Colonoscopy 12/10/2024 Depression Screening 12/10/2024 Diabetes: Annual Urine Albumin-Creatinine Ratio (uACR) 12/10/2024 Diabetes: Blood Sugar Contro l Test (HGBA1C) 12/10/2024 HIV Screening 12/10/2024 Hepatitis C Screening 12/10/2024 Social Influencers of Health Screening 12/10/2024 Influenza Vaccine (#1) 2025 HIB Vaccines Aged Out No longer eligi ble based on patient's age to complete this topic HPV Vaccines Aged Out No longer eligi ble based on patient's age to complete this topic Hepatitis A Vaccines Aged Out No long er eligible based on patient's age to complete this topic IPV Vaccines Aged Out No longer eligi ble based on patient's age to complete this topic MMR Vaccines Aged Out No longer eligi ble based on patient's age to complete this topic Meningococcal ACWY Vaccine Aged Out N o longer eligible based on patient's age to complete this topic Meningococcal B Vaccine Aged Out No l onger eligible based on patient's age to complete this topic RSV Immunization Patients Un jatin 20 months Aged Out No longer eligible b ased on patient's age to complete this topic Varicella Vaccines Aged Out No longer eligible based on patient's age to complete this topic Insurance [facility] Care Teams Sewer And Inspector Relationship Specialty Start Date End Date Cally Rodriguez FNP [address] [place] [phone] PCP - General Family Medicine 12/10/24
[2025-01-30 13:43] LABS: Alanine Aminotransferase 15 U/L (0-40); Aspartate Amino Transferase 11 U/L (5-37); Cholesterol 218 mg/dL (<200); Estimated Glomerular Filt Rate > 60; HDL Cholesterol 50 mg/dL (>40); Sodium 135 mmol/L (135-145); Triglycerides 133 mg/dL (<150)
[2025-01-30 14:13] LABS: Vitamin B12 632 pg/mL (200-900)
== END 2025-01-30 12:08 | disposition home or self-care (01) ==
LOC: HO.LAB 12:07
PROVIDERS: PCP Nurse Practitioner Family; Visit Provider Physician Assistant Medical
DX: E11.65 Type 2 diabetes mellitus with hyperglycemia (principal); E78.5 Hyperlipidemia, unspecified; E66.9 Obesity, unspecified; R79.89 Other specified abnormal findings of blood chemistry; Z91.89 Other specified personal risk factors, not elsewhere classified
CPT/HCPCS: 36415; 80061; 82565; 82607; 84295; 84450; 84460; 84681; 86341

== ENCOUNTER 2025-02-06 11:07 | Outpatient (AMB) | payer OTHER, SELFPAY ==
--- NOTE | 2025-02-06 11:10 | MHC.OFFVIS ---
Vital Signs 02/06/25 11:26 Height 5 ft 7 in Weight 136 lb 14.513 oz BMI 21.4 BP 88/66 L Blood Pressure Location Lt brachial Position Sitting Pulse 85 Pulse Source Pulse Oximeter Pulse Oximetry (%) 96 Oxygen Delivery Method Room Air Intake Visit Reasons: T2DM Intake Note: Patient present today for T2DM. Last Diabetic Eye exam: Due over 2 years. Last Podiatry Visit: Does not see a Railway Equipment Operator Random Glucose: 558 mg/dl HgA1C: >14.0% 12/09/2024 Front Desk Assistant Required: No Accompanied by: Self / Same As Patient Allergies bee pollen Allergy (Mild, Verified 02/06/25 11:26) Vomiting Medication List - Last Reconciled 02/06/25 by HAL Luther acetone (urine) test (Ketone Urine Test strips) As directed blood pressure test kit-large As directed blood sugar diagnostic As directed blood sugar diagnostic (FreeStyle Lite Strips) As directed four times daily. blood-glucose meter (FreeStyle Lite Meter kit) As directed blood-glucose sensor (FreeStyle Sunny 3 Plus Sensor device) Apply 1 new sensor every 15 days as directed to monitor blood glucose continuously. blood-glucose,customer success advocate,cont (FreeStyle Sunny 3 [place]) Use daily to monitor blood glucose levels continuously. carvedilol 6.25 mg (2 x 3.125 mg) PO BID 30 days epinephrine (EpiPen 2-Keshav) 0.3 mg (0.3 mL) IM Q4H PRN fenofibrate 120 mg PO DAILY 30 days fluoxetine 20 mg PO DAILY 30 days gabapentin 600 mg PO TID 30 days glucose (Dex4 Glucose) 16 grams (4 x 4 gram) PO Q15M PRN hydroxyzine HCl 25 mg PO TID PRN insulin aspart U-100 (Novolog U-100 Insulin aspart) 1 sliding scale dose subcut USEASDIRECTD insulin glargine U-300 conc (Toujeo Max U-300 SoloStar) 76 units (0.2533 mL) subcut DAILY insulin syringe-needle U-100 (CareTouch Insulin Syringe) As directed to administer aspart insulin three times daily ketoconazole 2% 1 appl topical BID 2 weeks lancets (Easy Touch Lancets) As directed magnesium oxide 500 mg PO DAILY 30 days omeprazole 20 mg PO DAILY 30 days pen needle, diabetic As directed pen needle, diabetic As directed rosuvastatin 40 mg PO DAILY 30 days sacubitril-valsartan 24-26 mg (Entresto) 1 tab PO BID ticagrelor 60 mg PO Q12H HPI Comments Details: This is a 49-year-old male with a past medical history of colon cancer, lower extremity neuropathy, anxiety, depression, hyperlipidemia, GERD, diabetes, obesity , CHF and hypertension presenting for diabetic management. POC today is 558. He feels very fatigued, endorses blurry vision and intermittent lightheadedness as well as a headache. He says his mouth also feels very dry and feels swollen though it does not look swollen when he is trying to talk. His blood pressure is 88/66. He drank 2 bottles of water on his way to the appointment. This morning he had a hard boiled egg and black coffee, and he did not administer NovoLog. He did take Toujeo 64 units last night, and he has been taking metformin a 1000 mg twice a day. He stopped taking Jardiance because he did not feel like it was helping. He had lab work done last week which demonstrated low C-peptide, positive islet cell antibody screening and positive KEL antibody screening consistent with a new diagnosis of type 1 diabetes. Denies known family history of type 1 or type 2 diabetes. Patient was diagnosed with diabetes 2 years ago, and he reported 100 lb weight loss over the past 2 years. He also endorsed a history of admission for DKA a year or 2 ago at [facility]. Patient says he was never tested for type 1 diabetes. The patient's Sunny 3 download shows that he has hyperglycemia over 250 88% of the time, hyperglycemia 181-250 10% of the time in his in target range 2% of the time. He has no hypoglycemia. His GMI is 11.6%. There is a pattern of hyperglycemia throughout 24 hours. Patient was sent to the emergency room from this office for severe hyperglycemia on 12/09/2024. They recommended admission to stabilize glycemic control, but he had something to do that day and left against medical advice. Hemoglobin A1c was over 14% at his visit on 12/09/2024. Patient says that he did struggle with alcohol abuse for a couple of years, but he has been sober during the past year. Previous medication: Lantus was discontinued because it is not covered by the insurance. Eye exam: He missed his appointment with Bhaskar because of fatigue. He slept through his alarm, and he notes his blood sugar was very high that day. Podiatry: He has been referred to Podiatry. Complications: neuropathy The patient takes Entresto for heart failure. Hyperlipidemia: treated with fenofibrate 120 mg daily and rosuvastatin 40 mg daily. Overdue for labs. He is struggling with food and housing insecurity. ROS: Constitutional: + weight loss and fatigue. Denies fevers or chills Eyes: +blurry vision Respiratory: No shortness of breath, cough or wheezing Cardiovascular: No chest pain Gastrointestinal: Denies nausea or vomiting Neurologic: +headache, +dizziness, +lower extremity neuropathy Endocrine: see HPI Physical exam: Constitutional: Alert, in no distress. Eyes: Pupils are equal, round and reactive to light Neck: Supple, Full range of motion. No lymphadenopathy. Respiratory: Clear to auscultation. Cardiovascular: S1 S2 regular. No murmurs. Neurologic: No focal neurological deficits. Speech is clear. Moves extremities spontaneously. No facial asymmetry. Extremities: No edema. Psychiatric: Normal mood and affect [facility] Medical History (Updated 02/06/25 @ 12:25 by HAL Luther) Newly diagnosed type 1 diabetes mellitus Food insecurity Blurry vision Hyperglycemia No pertinent past medical history Surgical History H/O heart artery stent Family History Sister Heart attack Maternal Uncle FHx: mental illness Mother Substance abuse Father Substance abuse Social History Housing: Condominium Alcohol intake: current Patient Tobacco Use Status: Current everyday Tobacco user Tobacco use type: Cigarette e-Cigarette/Vaping Use: Never Used Second Hand Smoke Exposure: No Substance Use Type: Marijuana service: No Current occupational status: employed 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 Current occupational exposures/hazards: No Cognitive needs: No Hearing needs: No Vision needs: Yes Physical Exam Vital Signs: Last Vital Signs Pulse 85 02/06/25 11:26 BP 88/66 L 02/06/25 11:26 BMI result Body Mass Index 21.4 Office Procedures Glucose Monitoring Details Details: See [facility] [address]679 - Glucose monitoring, continuous-physician I&R Procedure code (CPT) selection complete Results UR Ketone Dip UR Ketone Dip Trace Last Edit by Nevaeh Dennis RN on 02/06/25 12:11 Results Reviewed Results Reviewed: Laboratory Last Values Glucose (Clinic) 558 mg/dL (60-115) H* 02/06/25 11:31 Laboratory Tests 01/30/25 02/06/25 12:17 12:01 Creatinine 0.95 Estimated GFR > 60 C-Peptide 0.83 AST 11 ALT 15 Triglycerides 133 Cholesterol 218 H LDL Cholesterol, Calc 142 H HDL Cholesterol 50 Vitamin B12 632 Ur Ketones (Stick) Trace Islet Cell Ab Screen POSITIVE A Islet Cell Ab Titer 2560 H KEL Antibody >250 H Assessment & Plan Assessment & Plan (1) Blurry vision: Code(s): H53.8 - Other visual disturbances Category: Medical (2) Hyperglycemia: Code(s): R73.9 - Hyperglycemia, unspecified Category: Medical (3) Newly diagnosed type 1 diabetes mellitus: Code(s): E10.9 - Type 1 diabetes mellitus without complications Category: Medical Plan In summary this is a 49-year-old male with uncontrolled, newly diagnosed type 1 diabetes. He has severe hyperglycemia. His blood pressure is also low today-likely dehydrated. Given oral hydration in office. Discussed that he would likely benefit from admission to stabilize his blood sugar, and he is agreeable to going to the emergency room, but he wants to go to [facility] since it is close to his home. He did not drive himself today. He is going to take the bus with his partner and go to the ED. Declined ambulance. Discontinue metformin and remain off Jardiance. Increase Toujeo from 64 units to 76 units nightly. Administer Novolog 5-10 minutes before meals. Novolog sliding scale: Blood sugar 100-149 take 4 units Blood sugar 150-199 mg/dL take 6 units Blood sugar 200-249 mg/dL take 8 units Blood sugar 250-299 mg/dL take 10 units Blood sugar 300-349 mg/dL take 12 units Blood sugar 350-399 mg/dL take 14 units Blood sugar >/=400 mg /dL take 16 units He picked up the glucose tablets and ketones strips. Reviewed treatment of hypoglycemia and hyperglycemia with the patient. Written instructions provided. Refer to dietitian and museum educator. Follow up will be scheduled [facility] with endocrinology MD for newly diagnosed type 1 diabetes. Orders: Orders AMB Ketone Urine Dipstick Today Z13.9 - Encounter for screening, unspecified AMB Glucose Monitoring Today E11.9 - Type 2 diabetes mellitus without complications Referrals Catering Chef Nutrition Referral E10.9 - Type 1 diabetes mellitus without complications Diabetes Education Referral E10.9 - Type 1 diabetes mellitus without complications Medications: Changed From insulin glargine U-300 conc (Toujeo Max U-300 SoloStar) Replaces Lantus. 60 units (0.2 mL) subcut DAILY 9 mL 5RF To insulin glargine U-300 conc (Toujeo Max U-300 SoloStar) 76 units (0.2533 mL) subcut DAILY 9 mL 5RF Discontinued metformin Discontinued Reason: Doctor's Order 1,000 mg PO BIDWMEAL 30 days 60 tabs 3RF Patient Instructions: Increase Toujeo from 64 units to 76 units nightly. Administer Novolog 5-10 minutes before meals. Novolog sliding scale: Blood sugar 100-149 take 4 units Blood sugar 150-199 mg/dL take 6 units Blood sugar 200-249 mg/dL take 8 units Blood sugar 250-299 mg/dL take 10 units Blood sugar 300-349 mg/dL take 12 units Blood sugar 350-399 mg/dL take 14 units Blood sugar >/=400 mg /dL take 16 units Stop metformin and remain off Jardiance. If you experience low blood sugar, treat this by eating a chewable fruit candy like skittles or jelly beans (about 8 pieces), 4 ounces (1/2 cup) of fruit juice (not diet), 1 tablespoon of honey or 4 glucose tablets. If your blood sugar is under 55, take double the amount of one of the above. Recheck your blood sugar in 15 minutes. Diabetic ketoacidosis (DKA) A serious condition that can lead to diabetic coma (passing out for a long time) or even When your cells don't get the glucose they need for energy, your body begins to burn fat for energy, which produces ketones. Ketones are chemicals that the body creates when it breaks down fat to use for energy. The body does this when it doesn?t have enough insulin to use glucose, the body?s normal source of energy. When ketones build up in the blood, they make it more acidic. They are a warning sign that your diabetes is out of control or that you are getting sick. Symptoms of Diabetic Ketoacidosis (DKA) DKA usually develops slowly. But when vomiting occurs, this life-threatening condition can develop in a few hours. Early symptoms include the following: ? Thirst or a very dry mouth ? Frequent urination ? High blood glucose (blood sugar) levels ? High levels of ketones in the urine Then, other symptoms appear: ? Constantly feeling tired ? Dry or flushed skin ? Nausea, vomiting, or abdominal pain ? (Vomiting can be caused by many illnesses, not just ketoacidosis. If vomiting continues for more than 2 hours, contact your health care provider.) ? Difficulty breathing ? Fruity odor on breath ? A hard time paying attention, or confusion When should you test for ketones? It is advisable to check for ketones under the following conditions when: Your blood glucose is higher than 250mg/dl. Feeling nauseated, throwing up, or have pains in your abdominal region. Have a cold or flu. Have general body fatigue. Feel thirsty or have a very dry mouth. Have flushed skin. Have a fruity breath or a hard time breathing. You feel confused or in fog. Negative, trace or light ketones: hydrate, bring sugars down with insulin You should go to the ER if you have moderate or large ketones. Coding Level of Care Code Est Pt Level 4 (19256) Diagnoses Blurry vision H53.8 Hyperglycemia R73.9 Newly diagnosed type 1 diabetes mellitus E10.9 CPT Codes Details - CPT: 68998 - Glucose monitoring, continuous-physician I&R ([id number])
[2025-02-06 11:26] VITALS: BP 88/66; PULSE 85; O2SAT 96; BMI 21.4
[2025-02-06 11:34] LABS: Glucose, Whole Blood 558 mg/dL (60-115)
--- OUTSIDE RECORDS SUMMARY | 2025-02-06 11:40 | XMS_ITS | Clinical Summary ---
Author Organization [address] [facility] Address [address] [place] [address] Phone Care Team Providers Care Community Recreation Programmer Name Role Phone Cally Rodriguez DOROTHEA Primary Care Provider [phone] Social History Tobacco Use Types Packs/Day Years Used Date Smoking Tobacco: Never Assessed Sex and Gender Information Value Date Recorded Sex Assigned at Not on file Legal Sex Male 8:23 AM EDT Gender Identity Not on file Sexual Orientation Not on file Plan of Treatment Upcoming Encounters Date Type Department Care Team ([facility] st Contact Info) Description 03/04/2025 2:15 PM EDT Consult Orthopedic Surgery - [place] [phone] [id number] Abdirizak Walker DPM [address] [address] Health Maintenance Due Date Last Done Comments [...] patient's age to complete this topic Insurance [facility] Care Teams Community Recreation Programmer Relationship Specialty Start Date End Date Cally Rodriguez FNP [address] [place] [id number] PCP - General Family Medicine 12/10/24
--- OUTSIDE RECORDS SUMMARY | 2025-02-06 11:41 | XMS_ITS | Clinical Summary ---
Author Organization [facility] Address [address] [place] [phone] Phone Care Team Providers Care Laboratory Analyst Name Role Phone Cally Rodriguez ANTHROPOLOGIST Primary Care Provider Cat vailable Social History Tobacco Use Types Packs/Day Years Used Date Smoking Tobacco: Never Assessed Education Answer Date Recorded Are you interested in more education? Not on radha e 10/31/2023 Are you concerned about learning? Not on file 10/31/2023 No 10/31/2023 No 10/31/2023 Digital Access Answer Date Recorded No 10/31/2023 No 10/31/2023 Reliable internet access at home? Not on file 10/31/2023 Device with a working camera? Not on file Sex and Gender Information Value Date Recorded Sex Assigned at Not on file Legal Sex Male 10:25 AM EDT Gender Identity Not on file Sexual Orientation Not on file Plan of Treatment Health Maintenance Due Date Last Done Comments Adult Td,Tdap Booster 1975 LIPID PANEL 1975 DEPRESSION SCREENING 1987 SMOKING Hx and SMOKELESS TOB ACCO SCREENING 09/26/1988 HEPATITIS C SCREENING 09/26/1993 HIV ONE-TIME SCREENING (18-6 5 YEARS) 09/26/1993 COLOGUARD 09/26/2020 COLONOSCOPY 09/26/2020 COLORECTAL CANCER SCREENING 09/26/2020 FIT TEST 09/26/2020 FOBT 09/26/2020 SIGMOIDOSCOPY 09/26/2020 VIRTUAL COLONOSCOPY 09/26/2020 COVID-19 VACCINE (2023-2 5 season) 2024 HEPATITIS A VACCINES Aged Out No long er eligible based on patient's age to complete this topic HIB VACCINES Aged Out No longer eligi ble based on patient's age to complete this topic MENINGOCOCCAL VACCINES (ACWY) Aged Out No longer eligible based on patient's age to complete this topic MENINGOCOCCAL VACCINES (B) Aged Out N o longer eligible based on patient's age to complete this topic PNEUMOCOCCAL VACCINES (0-49 years) Aged Out No longer eligible based on patient's age to complete this topic Medical Devices Not on file Insurance [address] [place] [id number] [place] [employer] [facility] POS EPO [facility] POS [facility]PO [facility] POS EPO [facility] POS EPO [facility] POS EPO Care Teams Laboratory Analyst Relationship Specialty Start Date End Date Cally Rodriguez NP PCP - General Nurse Practitioner 04/10/23 Additional Source Comments The information contained in this document represents components of the legal health record. It is not the complete legal health record.[facility]
== END 2025-02-06 12:11 | disposition home or self-care (01) ==
LOC: HO.ENCR 11:08
PROVIDERS: PCP Nurse Practitioner Family; Visit Provider Physician Assistant Medical
DX: E10.9 Type 1 diabetes mellitus without complications (principal); H53.8 Other visual disturbances; Z13.9 Encounter for screening, unspecified

== ENCOUNTER → 2025-02-06 11:07 | Outpatient (BNVA) | payer OTHER, SELFPAY | PROVIDERS: PCP Nurse Practitioner Family; Visit Provider Physician Assistant Medical | DX: E10.65 Type 1 diabetes mellitus with hyperglycemia (principal); H53.8 Other visual disturbances | CPT/HCPCS: 81002; 82947; 99212 ==

== ENCOUNTER 2025-02-23 11:09 | Outpatient (AMB) | payer OTHER, SELFPAY ==
--- NOTE | 2025-02-23 11:11 | A.OFFVIS_ITS ---
Vital Signs 02/23/25 11:13 Height 5 ft 7 in Weight 136 lb 10.986 oz BMI 21.4 BP 138/88 Blood Pressure Location Rt brachial Position Sitting Pulse 96 Pulse Source Pulse Oximeter Pulse Oximetry (%) 98 Oxygen Delivery Method Room Air Intake Visit Reasons: new dx Type I diabetes Intake Note: Patient present today for T1DM. Last Diabetic Eye exam: Due over 2 years. Last Podiatry Visit: Does not see a Patient Registration Representative Random Glucose: 496 mg/dL HgA1C: >14.0% 12/09/2024 UR Ketone Dip: 15 Sales Strategy Manager Required: No Accompanied by: Self / Same As Patient Allergies bee pollen Allergy (Mild, Verified 02/23/25 11:19) Vomiting HPI Comments Details: 49 YO M with is seen in consultation for T1DM . Can previously saw HAL Lozada on 02/06/25 . Initially diagnosed with T1DM in 2 yrs ago when presented with CHF . Was initially started on treatment with metformin. Current regimen: Toujeo 76 unit s HS Novolog sliding scale Blood sugar 100-149 take 4 units Blood sugar 150-199 mg/dL take 6 units Blood sugar 200-249 mg/dL take 8 units Blood sugar 250-299 mg/dL take 10 units Blood sugar 300-349 mg/dL take 12 units Blood sugar 350-399 mg/dL take 14 units Blood sugar >/=400 mg /dL take 16 units Per the CGM Sunny CGMS is active 81 % of time . data the patient's predicted A1C is 10.4 % which is compared to the patients previous A1C [] dated []. Avg glucose is 297 . Variability of 30.5 The patient's blood sugars were in target 13% of the time, above target 97% of the time, and below target 0% of the time Most recent A1C: [], [down] from prior of []. Reports low sugars after meals on daily basis . Treats lows with OJ . Checks sugar after to ensure it is rising. Follows the rule of 15's. No Family history of autoimmunity in Has eyes checked yearly, last eye exam 2 yrs ago has appt Mar 2025 , No retinopathy. Has neuropathy, last foot exam [], will see podiatry. Denies nephropathy,Not on ARNAUD/ARB. UAC [] measured on []. Has HLD, on statin. Last LDL [] measured on []. Has history of CAD. Not Had diabetes education. Diet/Carb counting: No Has prior episodes of DKA last yr . Denies prior severe episodes of hypoglycemia requiring help or hospitalization. Labs: [facility] Medical History Newly diagnosed type 1 diabetes mellitus Food insecurity Blurry vision Hyperglycemia No pertinent past medical history Surgical History H/O heart artery stent Family History Sister Heart attack Maternal Uncle FHx: mental illness Mother Substance abuse Father Substance abuse Other Type 2 diabetes mellitus with diabetic neuropathy, unspecified Social History Housing: Condominium Alcohol intake: current Patient Tobacco Use Status: Current everyday Tobacco user Tobacco use type: Cigarette e-Cigarette/Vaping Use: Never Used Second Hand Smoke Exposure: No Substance Use Type: Marijuana service: No Current occupational status: employed 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 Current occupational exposures/hazards: No Cognitive needs: No Hearing needs: No Vision needs: Yes Physical Exam Vital Signs: Last Vital Signs Pulse 96 02/23/25 11:13 BP 138/88 02/23/25 11:13 Pulse Ox 98 02/23/25 11:13 Oxygen Delivery Method Room Air 02/23/25 11:13 BMI result Body Mass Index 21.4 Office Meds Humalog U-100 Insulin 100 unit/mL subcutaneous solution Performing Provider: Volodymyr Marrufo MD Performing Location[place] [facility] Administered by: Nveaeh Dennis RN on 02/23/25 11:41 Dose Route Admin Location Dispensed Lot Number Expiration Date [facility] [employer] 10 unit subcut right upper arm 0.1 mL [id number] 07/03/25 8207-3079-32 E [employer] Total Dispensed Waste 0.1 mL 0 % Comments: Discussed with Dr. Marrufo. Patient is with elevated blood sugar and ketones 15. Patient did not take his insulin this morning d/t fear of hypoglycemia while on public transportation. Patient also is not able to afford glucose tabs at this time and insurance will not cover. Patient is complaining of bilateral foot pain right is worse then the left. Patient given four cups of water and Dr. Marrufo verbally ordered to give 10 units of insulin lispro. Patient is agreeable to plan. Patient advised will stay one hour to recheck his glucose levels. Insulin lispro was drawn up in insulin syringe and verified visually dosage with Dr. Marrufo and with Abeba SOLER. Patient tolerated injection well. Meir OLSEN alerted to insulin being given at 11:40 while recheck in one hour per protocol. Results UR Ketone Dip UR Ketone Dip 15 Last Edit by FRANKIE Kendall on 02/23/25 11:27 Results Reviewed Results Reviewed: Laboratory Last Values Glucose (Clinic) 241 mg/dL (60-115) H 02/23/25 13:12 Ur Ketones (Stick) 15 02/23/25 11:26 Assessment & Plan Assessment & Plan (1) Newly diagnosed type 1 diabetes mellitus: Code(s): E10.9 - Type 1 diabetes mellitus without complications Category: Medical Plan: This is a 49-year-old white male with a history of type 1 diabetes being treated with basal-bolus insulin with poor glycemic control and known microvascular complications namely neuropathy with a history of CHF Plan is to change the Lantus to Tresiba 76 units . Also told patient to use sliding scale Humalog but not to take more than 10 units for correction. We will also send patient to nurses educator and chief of production. Could consider use of an insulin pump in the future. He had a blood sugar today of greater t young 496 with ketones. However after injection of 10 units of Humalog his blood sugar declined to 350. Was told to report any hypoglycemia for further adjustment of the insulin. We will check lipid profile microalbumin to creatinine ratio Orders: Orders AMB Ketone Urine Dipstick Today E10.9 - Type 1 diabetes mellitus without complications Microalbumin, Random (w Creat) Today E10.9 - Type 1 diabetes mellitus without complications AMB Insulin Lispro Injection Practice Supplied Today E10.9 - Type 1 diabetes mellitus without complications Lipid Panel Today E10.9 - Type 1 diabetes mellitus without complications Medications: New glucagon 3 mg/actuation (Baqsimi) 3 mg intranasal ONCE 2 ea 4RF insulin degludec (Tresiba FlexTouch U-100 insulin) 76 units (0.76 mL) subcut DAILY 45 mL 4RF Discontinued insulin glargine U-300 conc (Toujeo Max U-300 SoloStar) Discontinued Reason: Doctor's Order 76 units (0.2533 mL) subcut DAILY 30 days 9 mL 5RF Coding Level of Care Code Est Pt Level 4 (33509) Diagnoses Newly diagnosed type 1 diabetes mellitus E10.9
[2025-02-23 11:13] VITALS: BP 138/88; PULSE 96; O2SAT 98; BMI 21.4
[2025-02-23 11:18] LABS: Glucose, Whole Blood 496 mg/dL (60-115)
--- OUTSIDE RECORDS SUMMARY | 2025-02-23 12:09 | XMS_ITS | Clinical Summary ---
Author Organization [facility] Address [address] [place] [phone] Phone Care Team Providers Care Early Head Start Director Name Role Phone Cally Rodriguez CHEMICAL HANDLER Primary Care Provider Cat vailable Social History [...] Medical Devices Not on file Insurance [address] [place] [id number] [employer] [facility] POS EPO [facility] POS EPO [facility] POS EPO [facility] POS EPO [facility] POS EPO [facility] POS EPO Care Teams Early Head Start Director Relationship Specialty Start Date End Date Cally Rodriguez NP PCP - General Nurse Practitioner 04/10/23 Additional Source Comments The information contained in this document represents components of the legal health record. It is not the complete legal health record.[facility]
--- OUTSIDE RECORDS SUMMARY | 2025-02-23 12:09 | XMS_ITS | Clinical Summary ---
Author Organization [facility] Address [address] [place] [address] Phone Care Team Providers Care Crm Specialist Name Role Phone Cally Rodriguez DOROTHEA Primary Care Provider [phone] Social History Tobacco Use Types Packs/Day Years Used Date Smoking Tobacco: Never Assessed Sex and Gender Information Value Date Recorded Sex Assigned at Not on file Legal Sex Male 8:23 AM EDT Gender Identity Not on file Sexual Orientation Not on file Plan of Treatment Upcoming Encounters Date Type Department Care Team ([facility] st Contact Info) Description 03/04/2025 2:15 PM EDT Consult Orthopedic Surgery - [place] [id number] [address] Abdirizak Walker DPM [address] [address] Health Maintenance Due Date Last Done Comments [...] 09/26/1994 COVID-19 Vaccine (2023-2 5 season) 2024 Depression Screening 07/23/2024 Cholesterol Screening (Lipid Panel) 12/10/2024 Colorectal Cancer Screening: Colonoscopy 12/10/2024 Diabetes: Annual Urine Albumin-Creatinine Ratio (uACR) [...] patient's age to complete this topic Insurance [facility] PL[facility] Care Teams Crm Specialist Relationship Specialty Start Date End Date Cally Rodriguez FNP [address] [place] [id number] PCP - General Family Medicine 12/10/24
[2025-02-23 12:44] LABS: Glucose, Whole Blood 306 mg/dL (60-115)
[2025-02-23 13:16] LABS: Glucose, Whole Blood 241 mg/dL (60-115)
== END 2025-02-23 13:14 | disposition home or self-care (01) ==
LOC: HO.ENCR 11:10
PROVIDERS: PCP Nurse Practitioner Family; Visit Provider Internal Medicine Endocrinology, Diabetes & Metabolism
DX: E10.9 Type 1 diabetes mellitus without complications (principal)
CPT/HCPCS: 99214

== ENCOUNTER → 2025-02-23 11:09 | Outpatient (BNVA) | payer OTHER, SELFPAY | PROVIDERS: PCP Nurse Practitioner Family; Visit Provider Internal Medicine Endocrinology, Diabetes & Metabolism | DX: E10.9 Type 1 diabetes mellitus without complications (principal) | CPT/HCPCS: 81002; 82947; 96372; 99212; J1815 ==

== ENCOUNTER 2025-03-05 10:15 | Outpatient (AMB) | payer OTHER, SELFPAY ==
--- NOTE | 2025-03-05 10:14 | A.OFFVIS_ITS ---
Intake Intake Visit Reasons: Type 1 diabetes mellitus without complications Radio Assembler Required: No Accompanied by: Self / Same As Patient Allergies bee pollen Allergy (Mild, Verified 02/23/25 11:19) Vomiting HPI Comprehensive Diabetes Asmnt Most Recent Diabetes Results: 2 Cholesterol, (<200) 218 mg/dL H 01/30/25 HDL Cholesterol, (>40) 50 mg/dL 01/30/25 Triglycerides, (<150) 133 mg/dL 01/30/25 Creatinine, (0.5-1.4) 0.95 mg/dL 01/30/25 BUN, (9-16) 22 mg/dL H 12/09/24 Sodium, (135-145) 135 mmol/L 01/30/25 Potassium, (3.3-5.1) 4.6 mmol/L 12/09/24 Chloride, (96-108) 91 mmol/L L 12/09/24 Carbon Dioxide, (22-29) 27 mmol/L 12/09/24 Calcium, (8.4-10.2) 9.5 mg/dL 12/09/24 AST, (5-37) 11 U/L 01/30/25 ALT, (0-40) 15 U/L 01/30/25 Total Protein, (6.5-8.0) 8.0 g/dL 12/09/24 Albumin, (3.5-5.0) 4.5 g/dL 12/09/24 [facility] Medical History Newly diagnosed type 1 diabetes mellitus Food insecurity Blurry vision Hyperglycemia No pertinent past medical history Surgical History H/O heart artery stent Family History Sister Heart attack Maternal Uncle FHx: mental illness Mother Substance abuse Father Substance abuse Other Type 2 diabetes mellitus with diabetic neuropathy, unspecified Social History Housing: Condominium Alcohol intake: current Patient Tobacco Use Status: Current everyday Tobacco user Tobacco use type: Cigarette e-Cigarette/Vaping Use: Never Used Second Hand Smoke Exposure: No Substance Use Type: Marijuana service: No Current occupational status: employed 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 2= needs review? 3= comprehend keep point? 4= demonstrates understanding/ competent? NC= Not Covered Topics Learning Objective: Initial visit Initial or post srvc Initial or post srvc Initial or post srvc Initial or post srvc Initial or post srvc Post srvc Comments Pre Edu-assessment/plan Outcome or reassess O utcome or reassess Outcome or reassess Outcome or reassess Outcome or reassess Outcome or reassess Diabetes pathophysiology 1 Healthy eating 1 Being active 1 Taking medication 1 Monitoring glucose 1 Acute complication 1 Chronic complicated 1 Lifestyle and healthy coping 1 Diabetes distress in support 1 ?Diabetes pathophysiology: ?Defined diabetes med identify own type of diabetes; list 3 options for treating diabetes Healthy eating: ?Described effect of type, amount and ?timing of food on blood glucose; list 3 methods for planning meal Being active: ?State effect of exercise on blood glucose level Taking medication: ?State effect of diabetes medications on diabetes; name diabetes medications taking, action and side effects Monitoring glucose: ?Identify recommended blood glucose targets and personal target Acute complication: ?List symptoms and treatment of hyper and hypoglycemia, DKA, sick day guidelines and guidelines for severe weather or situations of crisis and diabetes supply manage Chronic complication: ?To find the relationship of blood glucose levels to long- term complications of diabetes in screening and preventative measures Lifestyle and healthy coping: ?Described lifestyle and healthy coping strategies to rule out diabetes self-management Diabetes to stress and support: ?Recognize Diabetes to stress and be able to identified support options Learning objectives: The patient was provided with verbal and written education on the following topics as outlined below. The patient met all learning objectives and was able to verbalize understanding and provide teach back of education topics discussed . The patient was provided with the opportunity to ask questions and all questions were answered. Patient Assessment Assess patient education level/literacy/barriers Newly Dx type 1, last A1c 12/09/24. Patient questions/concerns, in office today Pt glucose was dropping while in the 80s, we gave Pt 4 oz of OJ, glucose continued to drop, gave 4 glucose tabs, with water. after 10 min glucose on CGM 115 mg/dL with arrow pointing to the side. Pt given crackers and peanut butter for a snack. Pt is on Novolog S/S Tresiba 76 units Instructed Pt In the past 2 days Pt has had frequent low glucose. Reviewed with Pt how to treat Hypo with rule of 15s, handout given What is Diabetes? Pathophysiology How the body produces and uses insulin Identify type of DM Risk factors Signs of Diabetes Brief overview of Diabetes Management Monitoring blood sugar Following a meal plan Regular exercise Maintaining a healthy weight Taking medication as needed Members of the care team (PCP, RN, MA, RD, CDE, assistant professor in family studies) Blood glucose monitoring When/how often to test Target blood sugar range Introduction to Nutrition Importance of healthy diet in managing DM Diet is personalized to individual preference Review patient?s regular diet/food preferences Who prepares meals/does food shopping/ Dining out?/ Barriers? How diet effects glucose Eating 3 balanced meals a day with small, healthy snacks between meals Review food groups Carbohydrates: What is a carbohydrate/Which food/food groups are considered carbohydrates Effect of carbohydrates on blood glucose Portion sizes Reading food labels Basic carb counting (if applicable per nursing assessment) Plate method Meal planning Recommendations: Follow plate method, consistent carbs and read nutritional labels. Smart Goal: Pt will keep carb portions to 45-60gm Educational Materials: The patient was provided with the following written educational materials: Planning Healthy Meals Handout Patient Response to instructions: Comprehension of Instructions: Fair Readiness to make changes: Contemplation How confident they feel about making changes: Positive Portions of this note were created using voice recognition software, please excuse any words or phrases that may have been misinterpreted. Patient Instructions: Include regular daily activity. ADA recommends 30 minutes of exercise 5 days a week. Weight loss talk to PCP or Warp Trucker before starting new plan. Test blood sugar as directed; Fasting and 2hpp largest meal. Watch trends in results. Utilize results and to assess how food, physical activity and medications affect blood sugar results. Bring glucometer or CGM to next visit. Be knowledgeable about diabetes medication, its action, side effects, efficacy, toxicity, prescribed dosage, appropriate timing and frequency of administration, effect of missed and delayed doses and instructions for storage, travel and safety. Problem solving techniques to monitor hypo/hyperglycemia episodes and treatments. Reduce risk reduction behaviors, smoking cessation, regular eye, foot and dental examinations. Coding Level of Care Code Est Pt Level 1 (23341) Diagnoses Newly diagnosed type 1 diabetes mellitus E10.9 Results Reviewed Results Reviewed: Laboratory Last Values Glucose (Clinic) 117 mg/dL (60-115) H 03/05/25 10:29
[2025-03-05 10:33] LABS: Glucose, Whole Blood 117 mg/dL (60-115)
--- OUTSIDE RECORDS SUMMARY | 2025-03-05 11:00 | XMS_ITS | Clinical Summary ---
Author Organization [facility] Address [address] [place] [address] Phone Care Team Providers Care Mba Internship Name Role Phone Cally Rodriguez CLIENT TECHNOLOGIES ANALYST Primary Care Provider [phone] Social History Tobacco Use Types Packs/Day Years [...] topic Medical Devices Not on file Insurance [employer] POS EPO [employer] POS EPO [facility] POS E[facility] POS EPO [facility] POS EPO [facility] POS EPO Care Teams Mba Internship Relationship Specialty Start Date End Date Cally Rodriguez NP [address] [place], [place] [id number] PCP - General Nurse Practitioner 04/10/23 Additional Source Comments The information contained in this document represents components of the legal health record. It is not the complete legal health record.[facility]
== END 2025-03-05 11:09 | disposition home or self-care (01) ==
PROVIDERS: PCP Nurse Practitioner Family; Visit Provider Registered Nurse Diabetes Educator
DX: E10.9 Type 1 diabetes mellitus without complications (principal)

== ENCOUNTER → 2025-03-05 10:15 | Outpatient (BNVA) | payer OTHER, SELFPAY | PROVIDERS: PCP Nurse Practitioner Family; Visit Provider Registered Nurse Diabetes Educator | DX: E10.9 Type 1 diabetes mellitus without complications (principal) | CPT/HCPCS: 82947; 99211 ==

== ENCOUNTER 2025-03-18 12:07 | Outpatient (AMB) | payer OTHER, SELFPAY ==
--- NOTE | 2025-03-18 12:21 | A.OFFVIS_ITS ---
Vital Signs 03/18/25 12:26 Height 5 ft 7 in Weight 131 lb BMI 20.5 BP 124/76 Blood Pressure Location Rt brachial Position Sitting Pulse 106 H Pulse Source Pulse Oximeter Pulse Oximetry (%) 98 Oxygen Delivery Method Room Air Intake Visit Reasons: Abnormal weight loss Intake Note: New pt for initial eval of abn W/L. CC: C.O. appetite fluctuation, constipation, umbilical region abd pain. Pt states he has hx of colon resection via [facility] ~ 15 years ago. 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 Reports lost almost 80 lbs in a year - was attributed to being type 1 diabetic. Sugars consistently run high. BG right now on CGM is 400. Has only taken basal insulin as of last night. Reports has loss of appetite, gets full easily. Also has severe diarrhea after eating so avoids to eat too much anyway. Appetite also affected by significant low mood - has been out of a job due to issues with lightheadedness and blurry vision. PCP working on getting him on SSI. Pt also hx of PRECANCEROUS polyps (he confirms these were not cancerous) including a large one which he had to get surgically resected almost 15 years ago. Done at [facility]. Pt's last colo was 5 years ago in [facility]. Was asked to return in 3 years per his recall. Mat grand father with CRC. Pt currently smokes 0.5 PPD. No etOH. Remote hx of heavy etOH use 2 years ago with a DUI. 20 shots of whiskey and bourbon. Quit with the help of rehab admission in [place]. [facility] Medical History Newly diagnosed type 1 diabetes mellitus Food insecurity Blurry vision Hyperglycemia No pertinent past medical history Surgical History History of colon resection H/O colonoscopy H/O heart artery stent Family History Sister Heart attack Maternal Uncle FHx: mental illness Mother Substance abuse Father Substance abuse Other Type 2 diabetes mellitus with diabetic neuropathy, unspecified Social History Housing: Condominium Alcohol intake: current Patient Tobacco Use Status: Current everyday Tobacco user Tobacco use type: Cigarette e-Cigarette/Vaping Use: Never Used Second Hand Smoke Exposure: No Substance Use Type: Marijuana service: No Current occupational status: employed 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 [employer] Current occupational exposures/hazards: No Cognitive needs: No Hearing needs: No Vision needs: Yes Review of Systems Const All systems reviewed & are unremarkable except as noted in HPI and below Physical Exam Exam Exam: thin male no apparent distress slightly tremulous abd soft nondistended Vital Signs: Last Vital Signs Pulse 106 H 03/18/25 12:26 BP 124/76 03/18/25 12:26 Pulse Ox 98 03/18/25 12:26 Oxygen Delivery Method Room Air 03/18/25 12:26 BMI result Body Mass Index 20.5 Assessment & Plan Assessment & Plan (1) Newly diagnosed type 1 diabetes mellitus: Code(s): E10.9 - Type 1 diabetes mellitus without complications Category: Medical (2) Unintentional weight change: Code(s): R68.89 - Other general symptoms and signs Category: Medical (3) Change in bowel habit: Code(s): R19.4 - Change in bowel habit Category: Medical (4) Abdominal pain: Code(s): R10.9 - Unspecified abdominal pain Category: Medical Qualifiers: Abdominal location: generalized Qualified Code(s): R10.84 - Generalized abdominal pain (5) Congestive heart failure (CHF): Code(s): I50.9 - Heart failure, unspecified Category: Medical (6) Personal history of colonic polyps: Code(s): Z86.0100 - Personal history of colon polyps, unspecified Category: Medical Plan Wide differentials for unintentional weight loss with ongoing GI symptoms. Certainly could be secondary to uncontrolled type 1 diabetes and ketosis. Will need to rule out pancreatic abnormality given age of onset of type 1 diabetes. Early satiety and nausea postprandially likely related to delayed gastric emptying from hyperglycemia. Similarly, change in bowel habits are also likely secondary to hyperglycemia with cathartic effect given his triggers mostly run between 300-500. Will get workup done to rule out chronic infection, pulmonary nodule/mass given underlying smoking history. He will also get pancreatic imaging. Plan: -labs as below -stool studies to rule out pancreatic insufficiency and to screen for IBD -chest x-ray -MRI pancreas protocol -EGD/colonoscopy to be set up -PEG prep given an instruction with the patient. He is aware that due to reported cardiac history with severe cardiomyopathy, will need cardiology clearance prior to this. Orders: Orders XR chest 2V Today E11.9 - Type 2 diabetes mellitus without complications, R68.89 - Other general symptoms and signs HIV Ab/Ag Today R68.89 - Other general symptoms and signs Hepatitis A IgG Today R68.89 - Other general symptoms and signs MR abdomen wo/w con Today E10.9 - Type 1 diabetes mellitus without complications, R68.89 - Other general symptoms and signs Calprotectin, Fecal Today R19.4 - Change in bowel habit Fecal Fat Qualitative Today R19.4 - Change in bowel habit Pancreatic Elastase-1 Today R19.4 - Change in bowel habit Hepatitis B Core Antibody Today R68.89 - Other general symptoms and signs Hepatitis B Surface Antibody Today R68.89 - Other general symptoms and signs Hepatitis C Antibody Today R68.89 - Other general symptoms and signs Medications: New peg 3350-electrolytes 236-22.74-6.74 -5.86 gram (Golytely) as per split prep instructions, until fecal effluent is clear 240 mL PO Q10M 4,000 mL 0RF colonoscopy Coding Level of Care Code New Pt Level 5 (37870) Complex EM visit Add On G2211 Diagnoses Newly diagnosed type 1 diabetes mellitus E10.9 Unintentional weight change R68.89 Change in bowel habit R19.4 Generalized abdominal pain R10.84 Abdominal location: generalized Congestive heart failure (CHF) I50.9 Personal history of colonic polyps Z86.0100
[2025-03-18 12:26] VITALS: BP 124/76; PULSE 106; O2SAT 98; BMI 20.5
--- OUTSIDE RECORDS SUMMARY | 2025-03-18 12:52 | XMS_ITS | Clinical Summary ---
Author Organization [facility] Address [address] [place] [address] Phone Care Team Providers Care Operational Intelligence Officer Name Role Phone Cally Rodriguez HEALTH SPA MANAGER Primary Care Provider [phone] Social History Tobacco Use Types Packs/Day Years [...] 09/26/2020 COVID-19 VACCINE (2023-2 5 season) 2024 INFLUENZA VACCINE (#1) 2025 HEPATITIS A VACCINES Aged Out No long [...] topic Medical Devices Not on file Insurance POS EPO [facility] POS EPO [facility] EPO [facility] EPO [facility]PO [facility] EPO Care Teams Operational Intelligence Officer Relationship Specialty Start Date End Date Cally Rodriguez NP [address] [place] [phone] PCP - General Nurse Practitioner 04/10/23 Additional Source Comments The information contained in this document represents components of the legal health record. It is not the complete legal health record.[facility]
== END 2025-03-18 14:25 | disposition home or self-care (01) ==
LOC: HO.HGI 12:08
PROVIDERS: PCP Nurse Practitioner Family; Visit Provider Internal Medicine
DX: E10.9 Type 1 diabetes mellitus without complications (principal); R63.4 Abnormal weight loss; R19.4 Change in bowel habit; R10.84 Generalized abdominal pain; I50.9 Heart failure, unspecified; Z86.0100 Personal history of colon polyps, unspecified
CPT/HCPCS: 99204

== ENCOUNTER 2025-03-18 12:07 | Outpatient (REF) | payer OTHER, SELFPAY ==
--- NOTE | ~2025-03-18 | XR_ITS ---
EXAMINATION: XR CHEST 2 VIEWS HISTORY: E11.9 - Type 2 diabetes mellitus without complications COMPARISON: There are no prior studies available for comparison. FINDINGS: PA and lateral views of the chest are submitted. The lungs are expanded and clear. There is no pleural effusion, pneumothorax, or pulmonary vascular congestion. The heart is normal in size. There is degenerative disc disease of the spine. XR/XR chest 2V IMPRESSION: Clear lungs. Electronically signed by: Volodymyr Bates MD 03/18/2025 02:09 PM EDT
[2025-03-18 13:48] LABS: MANUAL DIFF FLAG NO
[2025-03-18 14:59] LABS: Hematocrit 48.2 % (42.0-52.0); Hemoglobin 16.6 g/dl (14.0-18.0); Imm Gran Abs Auto 0.06 X10*3/uL (0.00-0.03); Imm Gran Pct Auto 0.5 % (0.0-0.4); Lymphocytes Absolute Auto 2.4 X10*3/uL (1.2-4.9); Mean Corpuscular HGB Conc 34.4 g/dl (31.0-36.0); Mean Corpuscular Hemoglobin 29.0 pg (27.0-33.0); Mean Corpuscular Volume 84.3 fL (80.0-98.0); NRBC Abs Auto 0.000 X10*3/uL (0.0-0.012); NRBC Pct Auto 0.0 /100WBC (0.0-0.2); Platelet Count 450 X10*3/uL (160-400); Red Blood Count 5.72 X10*6/uL (4.60-5.80); White Blood Count 11.6 X10*3/uL (4.8-10.8)
[2025-03-18 16:27] LABS: Alanine Aminotransferase 20 U/L (0-40); Albumin Level 4.5 g/dL (3.5-5.0); Alkaline Phosphatase 83 U/L (39-117); Anion Gap 15 (12-20); Aspartate Amino Transferase 15 U/L (5-37); Blood Urea Nitrogen 12 mg/dL (9-16); Calcium 9.2 mg/dL (8.4-10.2); Carbon Dioxide 25 mmol/L (22-29); Chloride 100 mmol/L (96-108); Cholesterol 196 mg/dL (<200); Estimated Glomerular Filt Rate > 60; HDL Cholesterol 47 mg/dL (>40); Potassium 4.2 mmol/L (3.3-5.1); Sodium 136 mmol/L (135-145); Total Protein 7.6 g/dL (6.5-8.0); Triglycerides 178 mg/dL (<150)
[2025-03-19 04:20] LABS: HBS Num1 > 1000.00 mIU/mL (0-7.99); HBc Num1 9.87 S/CO (0.00-0.79); HBsAGNum1 0.46 S/CO (0.00-0.99); Hepatitis B Surface Antigen Negative (Negative); ~HepC Num1 0.22 S/CO (0.00-0.79); ~Hepatitis B Surface Antibody REACTIVE (Nonreactive); ~Hepatitis C Antibody Nonreactive (Nonreactive)
[2025-03-19 04:37] LABS: HIV Num 1 0.06 S/CO (0.00-0.99)
[2025-03-19 05:10] LABS: HBc Num2 10.46 S/CO; HBc Num3 10.59 S/CO
[2025-03-20 04:05] LABS: ~Hepatitis A Antibody IgG 0.29 S/CO (0.00-0.99)
[2025-03-20 22:28] LABS: TS Negative Control Passed; TS Panel A 0; TS Panel B 0; TS Positive Control Passed; TSpotTB Negative (Negative)
[2025-03-23 15:48] LABS: PSA, Ultra Sensitive 0.28 ng/mL
== END 2025-03-18 12:08 | disposition home or self-care (01) ==
LOC: HO.XRAY 12:07
PROVIDERS: Internal Medicine Endocrinology, Diabetes & Metabolism; PCP Nurse Practitioner Family; Visit Provider Internal Medicine
DX: R63.4 Abnormal weight loss (principal); R10.84 Generalized abdominal pain; E11.9 Type 2 diabetes mellitus without complications; I50.9 Heart failure, unspecified; R19.4 Change in bowel habit; F32.9 Major depressive disorder, single episode, unspecified; Z11.59 Encounter for screening for other viral diseases; Z11.4 Encounter for screening for human immunodeficiency virus [HIV]; Z11.1 Encounter for screening for respiratory tuberculosis; Z86.0100 Personal history of colon polyps, unspecified
CPT/HCPCS: 36415; 71046; 80053; 80061; 82306; 84153; 84443; 85025; 86481; 86704; 86706; 86708; 86803; 87340; 87389; 99202

== ENCOUNTER → 2025-03-18 13:45 | Outpatient (BNV) | payer OTHER, SELFPAY | PROVIDERS: PCP Nurse Practitioner Family; Visit Provider Radiology Diagnostic Radiology | DX: R63.4 Abnormal weight loss (principal) | CPT/HCPCS: 71046 ==

== ENCOUNTER 2025-04-30 09:03 | Outpatient (AMB) | payer OTHER, SELFPAY ==
[2025-04-30 09:06] VITALS: BP 118/66; PULSE 97; O2SAT 97; BMI 19.9
--- NOTE | 2025-04-30 09:06 | A.OFFVIS_ITS ---
Vital Signs 04/30/25 09:06 Height 5 ft 7 in Weight 127 lb 3.307 oz BMI 19.9 BP 118/66 Blood Pressure Location Lt brachial Position Sitting Pulse 97 Pulse Source Pulse Oximeter Pulse Oximetry (%) 97 Oxygen Delivery Method Room Air Intake Visit Reasons: T1DM Intake Note: Patient presents for T1DM. Random glucose: 573 A1C 12.0 Allergies bee pollen Allergy (Mild, Verified 04/30/25 09:08) Vomiting Medication List - Last Reconciled 04/30/25 by Volodymyr Marrufo MD acetone (urine) test (Ketone Urine Test strips) As directed blood pressure test kit-large As directed blood sugar diagnostic As directed blood sugar diagnostic (FreeStyle Lite Strips) As directed four times daily. blood-glucose meter (FreeStyle Lite Meter kit) As directed blood-glucose sensor (FreeStyle Sunny 3 Plus Sensor device) Apply 1 new sensor every 15 days as directed to monitor blood glucose continuously. blood-glucose,field marketing coordinator,cont (FreeStyle Sunny 3 [place]) Use daily to monitor blood glucose levels continuously. carvedilol 6.25 mg (2 x 3.125 mg) PO BID 30 days epinephrine (EpiPen 2-Keshav) 0.3 mg (0.3 mL) IM Q4H PRN fenofibrate 120 mg PO DAILY 30 days fluoxetine 20 mg PO DAILY 30 days gabapentin 600 mg PO TID 30 days glucagon 3 mg/actuation (Baqsimi) 3 mg intranasal ONCE glucose (Dex4 Glucose) 16 grams (4 x 4 gram) PO Q15M PRN hydroxyzine HCl 25 mg PO TID PRN insulin degludec (Tresiba FlexTouch U-100 insulin) 76 units (0.76 mL) subcut DAILY insulin lispro (Admelog SoloStar U-100 Insulin lispro) subcutaneously 3 times a day; subcutaneously 3 times a day; Administer 5-10 minutes before meals. Lispro sliding scale: Blood sugar 100-149 take 4 units Blood sugar 150-199 mg/dL take 6 units Blood sugar 200-249 mg/dL take 8 units Blood sugar 250-299 mg/dL take 10 units Blood sugar 300-349 mg/dL take 12 units Blood sugar 350-399 mg/dL take 14 units Blood sugar >/=400 mg /dL take 16 units insulin syringe-needle U-100 (CareTouch Insulin Syringe) As directed to administer aspart insulin three times daily ketoconazole 2% 1 appl topical BID 2 weeks lancets (Easy Touch Lancets) As directed lidocaine 5% 2 patches topical magnesium oxide 500 mg PO DAILY 30 days omeprazole 20 mg PO DAILY 30 days ondansetron HCl 4 mg PO Q8H peg 3350-electrolytes 236-22.74-6.74 -5.86 gram (Golytely) 240 mL PO Q10M pen needle, diabetic As directed four times daily pen needle, diabetic As directed rosuvastatin 40 mg PO DAILY 30 days sacubitril-valsartan 24-26 mg (Entresto) 1 tab PO BID ticagrelor 90 mg PO BID HPI Comments Details: 49 YO M with is seen in consultation for T1DM . Initially diagnosed with T1DM in 2 yrs ago when presented with CHF . Was initially started on treatment with metformin. Current regimen: Toujeo 80 unit s HS Novolog sliding scale Blood sugar 100-149 take 4 units Blood sugar 150-199 mg/dL take 6 units Blood sugar 200-249 mg/dL take 8 units Blood sugar 250-299 mg/dL take 10 units Blood sugar 300-349 mg/dL take 12 units Blood sugar 350-399 mg/dL take 14 units Blood sugar >/=400 mg /dL take 16 units Per the CGM Sunny CGMS is active 100 % of time . data the patient's predicted A1C is 10.0 % which is compared to the patients previous A1C [] dated []. Avg glucose is 280 . Variability of 35.7 The patient's blood sugars were in target 18% of the time, above target 91% of the time, and below target 1% of the time Pattern shows persistent hyperglycemia throughout the day with occasional hypoglycemia occurring early evening Most recent A1C: [], [down] from prior of []. Rare hypoglycemia Treats lows with OJ . Checks sugar after to ensure it is rising. Follows the rule of 15's. No Family history of autoimmunity in Has eyes checked yearly, last eye exam , No retinopathy. Needs to make appt Has neuropathy, last foot exam [], will see podiatry. Denies nephropathy,Not on ARNAUD/ARB. UAC [] measured on []. Has HLD, on statin. Last LDL [] measured on []. Has history of CAD. Not Had diabetes education. Diet/Carb counting: No Has prior episodes of DKA last yr . Denies prior severe episodes of hypoglycemia requiring help or hospitalization. Labs:POC today>500. Ambulance called for patient to go to emergency room [facility] Medical History Newly diagnosed type 1 diabetes mellitus Food insecurity Blurry vision Hyperglycemia No pertinent past medical history Surgical History History of colon resection H/O colonoscopy H/O heart artery stent Family History Sister Heart attack Maternal Uncle FHx: mental illness Mother Substance abuse Father Substance abuse Other Type 2 diabetes mellitus with diabetic neuropathy, unspecified Social History Housing: Condominium Alcohol intake: current Patient Tobacco Use Status: Current everyday Tobacco user Tobacco use type: Cigarette e-Cigarette/Vaping Use: Never Used Second Hand Smoke Exposure: No Substance Use Type: Marijuana service: No Current occupational status: employed 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 Absence of acromegalic features. Neck exam reveals nl size thyroid about 15 gms. No thyroid nodules palpable. No carotid bruits present. Lungs CTA. Heart S1 S2, Reg R/R. No M/R/ G. Skin exam reveals absence of vitiligo or acanthosis nigricans. Abdominal exam reveals Soft NT/ND with NA BS. No organomegaly present. Neck Other: . Extrem Other: Visual exam of foot performed. No ulcerations or open lesions. No onchomycosis, no callouses.Pulses 2 + distally Sensation intact to monofilament exam. Vibratory sensation sensed is intact with 128 Hz tuning fork Results AMB Hemoglobin A1c AMB Hemoglobin A1c 12.0 % Last Edit by Kenzie Amezquita CMA on 04/30/25 09:25 Results Reviewed Results Reviewed: Laboratory Last Values Glucose (Clinic) 573 mg/dL (60-115) H* 04/30/25 09:14 Hgb A1c (Clinic) 12.0 % (4.0-6.0) H 04/30/25 09:19 Assessment & Plan Assessment & Plan (1) Newly diagnosed type 1 diabetes mellitus: Code(s): E10.9 - Type 1 diabetes mellitus without complications Category: Medical Plan: This is a 49-year-old white male with a history of type 1 diabetes being treated with basal-bolus insulin with poor glycemic control and known microvascular complications namely neuropathy with a history of CHF Plan is to send the patient to the emergency room for point of care >500 . Ambulance called. Patient to be taken the emergency room for treatment at to workup for diabetic ketoacidosis. Patient agrees to go by ambulance to the emergency room. Once he is discharged, will increase Toujeo up to 80 units we will make an appointment tobacco educator next couple of weeks. Referral was also made to podiatry and ophthalmology. Also had educator see patient today and we will schedule follow up visit to discuss possible initiation of insulin pump in future Orders: Orders AMB Hemoglobin A1c Today E10.9 - Type 1 diabetes mellitus without complications Referrals Ophthalmology Referral E10.9 - Type 1 diabetes mellitus without complications Podiatry Referral E10.9 - Type 1 diabetes mellitus without complications Coding Level of Care Code Est Pt Level 4 (08061) Complex EM visit Add On G2211 Diagnoses Newly diagnosed type 1 diabetes mellitus E10.9
[2025-04-30 09:19] LABS: Glucose, Whole Blood 573 mg/dL (60-115)
== END 2025-05-01 07:57 | disposition home or self-care (01) ==
LOC: HO.ENCR 09:04
PROVIDERS: PCP Nurse Practitioner Family; Visit Provider Internal Medicine Endocrinology, Diabetes & Metabolism
DX: E10.9 Type 1 diabetes mellitus without complications (principal)
CPT/HCPCS: 99214

== ENCOUNTER 2025-04-30 10:21 | Emergency (ER) | payer OTHER, SELFPAY ==
--- NOTE | ~2025-04-30 | XR_ITS ---
EXAMINATION: XR CHEST CLINICAL INFORMATION: elevated blood sugar COMPARISON: None available. TECHNIQUE: 2 views of the chest were obtained. FINDINGS: Cardiac and mediastinal contours are normal. The lungs are clear. No pleural effusion or pneumothorax. Degenerative changes of the spine. Unchanged T12 and L1 vertebral body compression fractures. There is a L3 vertebral body compression fracture, uncertain age. XR/XR chest 2V IMPRESSION: No evidence for acute disease in the chest. Mild T12 and L1 vertebral body compression fractures similar to February 2025 chest x-ray. L3 vertebral compression fracture, uncertain age. Electronically signed by: Nhung Chun MD 04/30/2025 11:09 AM EDT
[2025-04-30 10:36] VITALS: BP 126/68; BP 134/101; PULSE 76; PULSE 79; RESP 16; TEMP 36.9; O2SAT 100; O2SAT 96; BMI 19.9
--- NOTE | 2025-04-30 10:54 | ED_ITS ---
HPI - General Adult General Chief complaint: Recheck/Abnormal Lab/Rx Stated complaint: HYPERGLYCEMIA Time Seen by Provider: 04/30/25 10:53 Source: patient and EMS Mode of arrival: EMS Limitations: no limitations History of Present Illness ED Provider: Idania León PA-C HPI narrative: This is a 49 year old person assigned male at with a history of diabetes, diabetic neuropathy, and cardiac stenting on aspirin that presents due to elevated glucose at his outpatient visit. He was diagnosed with type 2 diabetes two years ago but he states that they changed the diagnosis to type 1. He was seeing his property claim rep today when they called an ambulance for him to be transferred here. He reports increase in thirst and urination. He endorses a 6 lbs unintentional weight loss in the last week. He states that he was vomiting yesterday and feels mildly nauseous today. He is having full body aches and fatigue. He takes insulin on a sliding scale and he takes basal insulin at night. He denies missing any doses. He states that he is very hungry, he skipped breakfast due to the elevated glucose. Related Data Home Medications ?Medication ?Instructions ?Recorded ?Confirmed sacubitril 24 mg-valsartan 26 mg 1 tab PO BID 06/14/22 04/30/25 tablet (Entresto) lidocaine 5 % topical patch 2 patch topical 03/18/25 1 ondansetron HCl 4 mg tablet 4 mg PO Q8H 03/18/2504/30 ticagrelor 90 mg tablet 90 mg PO BID 03/18/25 Previous Rx's ?Medication ?Instructions ?Recorded epinephrine 0.3 mg/0.3 mL 0.3 mg (0.3 mL) IM Q4H PRN 1 08/29/21 injection, auto-injector (EpiPen anaphylaxis #2 ea 2-Keshav) blood pressure test kit-large #1 ea 10/25/22 omeprazole 20 mg capsule,delayed 20 mg PO DAILY 30 day s #30 caps 11/24/22 release carvedilol 3.125 mg tablet 6.25 mg (2 x 3.125 mg) PO B ID 30 11/27/22 days #120 tabs blood sugar diagnostic #50 ea 12/12/22 fenofibrate 120 mg tablet 120 mg PO DAILY 30 days #30 tabs 02/09/23 rosuvastatin 40 mg tablet 40 mg PO DAILY 30 days #30 t abs 02/09/23 blood-glucose meter (FreeStyle #1 ea 02/13/23 Lite Meter kit) fluoxetine 20 mg tablet 20 mg PO DAILY 30 days #30 t abs 11/28/24 hydroxyzine HCl 25 mg tablet 25 mg PO TID PRN anxiety #90 tabs 11/28/24 lancets 28 gauge (Easy Touch #100 ea 11/28/24 Lancets) magnesium oxide 500 mg PO DAILY 30 days #30 tabs 11/28/24 acetone (urine) test (Ketone Urine #100 ea 12/09/24 Test strips) glucose 4 gram chewable tablet 16 g (4 x 4 gram) PO Q1 5M PRN low 12/09/24 (Dex4 Glucose) blood sugar #10 tabs insulin syringe-needle U-100 0.5 #300 ea 12/09/24 mL 31 gauge x 5/16 (CareTouch Insulin Syringe) pen needle, diabetic 29 gauge x #200 ea 12/09/24 1/2 blood sugar diagnostic (FreeStyle #200 ea 12/16/24 Lite Strips) blood-glucose sensor (FreeStyle #2 ea 12/16/24 Sunny 3 Plus Sensor device) blood-glucose,consultant electronics,cont #1 ea 12/16/24 (FreeStyle Sunny 3 Poplar) ketoconazole 2 % topical cream 1 appl topical BID 2 we eks #30 12/16/24 grams pen needle, diabetic 32 gauge x #200 ea 02/06/25 1/4 insulin lispro 100 unit/mL See Rx Instructions subcut TID #45 02/17/25 subcutaneous pen (Admelog SoloStar mL U-100 Insulin lispro) glucagon 3 mg/actuation nasal 3 mg intranasal ONCE #2 ea 02/23/25 spray (Baqsimi) insulin degludec 100 unit/mL (3 76 unit (0.76 mL) subc ut DAILY #45 02/23/25 mL) subcutaneous pen (Tresiba mL FlexTouch U-100 insulin) peg 3350-electrolytes 236 240 ml PO Q10M colonoscopy # 4,000 03/18/25 gram-22.74 gram-6.74 gram-5.86 mL gram solution (Golytely) gabapentin 600 mg tablet 600 mg PO TID 30 days #90 ta bs 04/27/25 Allergies Allergy/AdvReac Type Severity Reaction Status Date / Time bee pollen Allergy Mild Vomiting Verified 04/30/25 10:39 Review of Systems 2 Constitutional: Constitutional: Reports as per HPI Eyes: Eyes: Reports as per HPI ENT: Reports as per HPI Cardiovascular: Cardiovascular: Reports as per HPI Respiratory: Respiratory: Reports as per HPI Gastrointestinal: Gastrointestinal: Reports as per HPI Genitourinary: Genitourinary: Reports as per HPI Musculoskeletal: Musculoskeletal: Reports as per HPI Integumentary/Breasts: Skin/Breast: Reports as per HPI Neurologic: Reports as per HPI Psychiatric: Psychiatric: Reports as per HPI Endocrine: Endocrine: Reports as per HPI Hematologic/Lymphatic: Hematologic/Lymphatic: Reports as per HPI Allergic/Immunologic: Allergic/Immunologic: Reports as per HPI PMF Past Medical History Attestation statement: The following information was validated with the patient. Source: old records reviewed and nursing notes reviewed Medical History Newly diagnosed type 1 diabetes mellitus Food insecurity Blurry vision Hyperglycemia No pertinent past medical history Surgical History History of colon resection H/O colonoscopy H/O heart artery stent Family History Family History Sister Heart attack Maternal Uncle FHx: mental illness Mother Substance abuse Father Substance abuse Other Type 2 diabetes mellitus with diabetic neuropathy, unspecified Social History Social History Housing: Condominium Alcohol intake: current Patient Tobacco Use Status: Current everyday Tobacco user Tobacco use type: Cigarette e-Cigarette/Vaping Use: Never Used Second Hand Smoke Exposure: No Substance Use Type: Marijuana service: No Current occupational status: employed 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 Current occupational exposures/hazards: No Cognitive needs: No Hearing needs: No Vision needs: Yes Physical Exam ED Vital Signs: Vital Signs - 24 hr 04/30/25 10:36 04/30/25 11:24 04/30/25 12:00 Temperature 98.5 F 98 F 98 F Pulse Rate 76 82 94 Respiratory Rate 16 18 18 Blood Pressure 126/68 117/73 93/72 Pulse Oximetry 100 97 97 Oxygen Delivery Method Room Air Room Air Room Air 04/30/25 13:14 Temperature 98 F Pulse Rate 75 Respiratory Rate 16 Blood Pressure 114/75 Pulse Oximetry 100 Oxygen Delivery Method BMI result Body Mass Index 19.9 Const General: cooperative, no acute distress, alert and awake Nutritional Appearance: thin Orientation/consciousness: patient oriented x3 HENMT Head: Yes normal to inspection and Yes atraumatic Ears: hearing grossly normal bilaterally and external ears normal General nose exam: Normal external nose present, no nasal discharge noted and no epistaxis Face and sinus: Yes normal facial exam, No abrasion and No laceration Mouth: no drooling and no muffled voice Eyes General: appearance normal, both eyes and all related structures Periorbital: periorbital findings normal Eyelids: Yes eyelids normal Conjunctivae: conjunctivae normal Pupils: Equal, round and reactive pupils present EOM: EOMs intact bilaterally Neck Neck: Yes normal visual inspection and Yes full ROM Resp Effort & Inspection: normal respiratory effort and able to speak in complete sentences Auscultation: clear to auscultation bilaterally Cardio Rate: regular rate Neuro General: patient oriented x3 and moves all extremities Cranial nerves: Yes Equal, round and reactive pupils present Cognition (Neuro): normal cognition Extrem General: Yes normal to inspection, Yes full ROM and Yes capillary refill normal Psych Appearance: grossly normal Mental Status: mental status grossly normal Affect: normal affect Attitude: cooperative Thought process: Normal thought process present Thought content: Normal thought content present Insight: Good insight present (Psych) Medications Administered Discontinued Medications Generic Name Dose Route Start Last Admin Trade Name Freq PRN Reason Stop Dose Admin Lactated Ringer's 1,000 mls @ 999 mls/hr 04/30/25 11:45 04/30/25 12:49 Lr IV 04/30/25 12:45 Infused .Q1H1M LOVE Infusion Medical Decision Making Medical Decision Making MDM Narrative: Patient is a 49 year old assigned male at with a history of diabetes, diabetic neuropathy, and cardiac stenting on aspirin presenting to the emergency department today with elevated blood sugars and feeling generally unwell. Patient's physical exam was unremarkable. Patient's blood work showed a WBC count of 12.4 and a blood sugar of 406. Patient's labs were otherwise unremarkable with no evidence of acidosis / DKA / HHS. Patient's urine showed no acute process. Patient's EKG was unremarkable. Patient's chest x-ray showed no acute process. I am suspicious the patient's blood sugar is elevated secondary to a viral illness. Patient was given a liter of LR while in the department. I explained my physical exam findings as well as all test results to the patient. I answered all questions asked by the patient. I stressed the importance of the patient taking his medication as directed (either prescribed or as the over the counter packaging recommends). I stressed the importance of the patient following up with his primary care provider and his property claim rep. I stressed the importance of the patient returning to the emergency department immediately if his symptoms were to worsen or if he were to develop any dizziness, shortness of breath, difficulty breathing, chest pain, blurry vision, loss of vision, nausea, vomiting, abdominal pain, fever, chills, back pain, or any other complaints. Patient verbalized agreement and understanding with this treatment plan and discharge. Differential Diagnosis Differential Diagnoses: The differential diagnosis associated with the presentation includes Elevated blood sugar Viral illness COVID-19 Influenza PNA DKA HHS Admission/Observation Consideration of admission/observation: Escalation of care including admission/observation considered Patient would have been admitted to the hospital had his work up had any findings where hospital admission was appropriate and his clinical presentation warranted hospital admission. Lab Data [facility] Lab Attestation statement: I reviewed the patient's lab results. My interpretation of these results are in the [facility] Rationale portion of this note. 04/30/25 11:36 04/30/25 11:36 Labs: Lab Results 04/30/25 04/30/25 04/30/25 Range/Units 11:15 11:19 11:36 WBC 12.4 H (4.8-10.8) X10*3/uL RBC 5.16 (4.60-5.80) X10*6/uL Hgb 14.8 (14.0-18.0) g/dl Hct 42.3 (42.0-52.0) % MCV 82.0 (80.0-98.0) fL MCH 28.7 (27.0-33.0) pg MCHC 35.0 (31.0-36.0) g/dl RDW 12.5 (11.0-16.0) % Plt Count 424 H (160-400) X10*3/uL MPV 8.7 L (9.4-12.4) fL Immature Gran % (Auto) 0.5 H (0.0-0.4) % Neut % (Auto) 60.1 (45-73) % Lymph % (Auto) 32.1 (20-40) % [place] % (Auto) 5.5 (2-11) % Eos % (Auto) 1.5 (0-4) % Baso % (Auto) 0.3 (0-2) % Lymph # (Auto) 4.0 (1.2-4.9) X10*3/uL [place] # (Auto) 0.7 (0.1-1.2) X10*3/uL Eos # (Auto) 0.2 (0.0-0.4) X10*3/uL Baso # (Auto) 0.0 (0.0-0.2) X10*3/uL Abs Immat Gran (auto) 0.06 H (0.00-0.03) X10*3/uL Absolute Neuts (auto) 7.4 (2.0-8.3) x10*3/uL Absolute Nucleated RBC 0.000 (0.0-0.012) X10*3/uL Nucleated RBC % (auto) 0.0 (0.0-0.2) /100WBC VBG pH (7.32-7.43) VBG pCO2 mmHg VBG pO2 mmHg VBG HCO3 (22-26) mmol/L VBG O2 Saturation % VBG Base Excess mmol/L Sodium 133 L (135-145) mmol/L Potassium 4.1 (3.3-5.1) mmol/L Chloride 99 (96-108) mmol/L Carbon Dioxide 28 (22-29) mmol/L Anion Gap 10 L (12-20) BUN 14 (9-16) mg/dL Creatinine 0.67 (0.5-1.4) mg/dL Estim Creat Clear Calc 108.6 Estimated GFR > 60 POC Glucose 406 H* (60-115) mg/dL Random Glucose 354 H* (60-115) mg/dL Calcium 9.0 (8.4-10.2) mg/dL Magnesium 2.1 (1.6-2.6) mg/dL Total Bilirubin 0.2 (0.0-1.0) mg/dL AST 13 (5-37) U/L ALT 16 (0-40) U/L Alkaline Phosphatase 86 (39-117) U/L Troponin I High Sens 5.7 (<3.5-35.0) ng/L Total Protein 7.2 (6.5-8.0) g/dL Albumin 4.2 (3.5-5.0) g/dL Beta-Hydroxybutyrate 0.12 (0.02-0.27) mmol/L Urine Color Yellow Urine Appearance Clear Urine pH 6.0 (5.0-9.0) Ur Specific [place] >= 1.030 H (1.005-1.025) Urine Protein Negative (Neg-Trace) mg/dL Urine Glucose (UA) >=1000 H (Negative) mg/dL Urine Ketones Negative (Negative) mg/dL Urine Blood Negative (Negative) Urine Nitrite Negative (Negative) Ur Leukocyte Esterase Negative (Negative) Urine RBC 0-2 (0-2) /HPF Urine WBC 0-5 (0-5) /HPF Ur Squamous Epith Cells 0-2 (0-2) /HPF Urine Bacteria None Seen (None Seen) Hyaline Casts 0-2 (0-2) /LPF COVID-19 (ZENIA) Negative (Negative) COVID-19 Clin Com See Note Influenza Type A (KATHERINE) Negative (Negative) Influenza Type B (KATHERINE) Negative (Negative) Influenza A & B Note See Note 04/30/25 Range/Units 11:44 WBC (4.8-10.8) X10*3/uL RBC (4.60-5.80) X10*6/uL Hgb (14.0-18.0) g/dl Hct (42.0-52.0) % MCV (80.0-98.0) fL MCH (27.0-33.0) pg MCHC (31.0-36.0) g/dl RDW (11.0-16.0) % Plt Count (160-400) X10*3/uL MPV (9.4-12.4) fL Immature Gran % (Auto) (0.0-0.4) % Neut % (Auto) (45-73) % Lymph % (Auto) (20-40) % [place] % (Auto) (2-11) % Eos % (Auto) (0-4) % Baso % (Auto) (0-2) % Lymph # (Auto) (1.2-4.9) X10*3/uL [place] # (Auto) (0.1-1.2) X10*3/uL Eos # (Auto) (0.0-0.4) X10*3/uL Baso # (Auto) (0.0-0.2) X10*3/uL Abs Immat Gran (auto) (0.00-0.03) X10*3/uL Absolute Neuts (auto) (2.0-8.3) x10*3/uL Absolute Nucleated RBC (0.0-0.012) X10*3/uL Nucleated RBC % (auto) (0.0-0.2) /100WBC VBG pH 7.46 H (7.32-7.43) VBG pCO2 40 mmHg VBG pO2 62 mmHg VBG HCO3 28 H (22-26) mmol/L VBG O2 Saturation 91.0 % VBG Base Excess 4.7 mmol/L Sodium (135-145) mmol/L Potassium (3.3-5.1) mmol/L Chloride (96-108) mmol/L Carbon Dioxide (22-29) mmol/L Anion Gap (12-20) BUN (9-16) mg/dL Creatinine (0.5-1.4) mg/dL Estim Creat Clear Calc Estimated GFR POC Glucose (60-115) mg/dL Random Glucose (60-115) mg/dL Calcium (8.4-10.2) mg/dL Magnesium (1.6-2.6) mg/dL Total Bilirubin (0.0-1.0) mg/dL AST (5-37) U/L ALT (0-40) U/L Alkaline Phosphatase (39-117) U/L Troponin I High Sens (<3.5-35.0) ng/L Total Protein (6.5-8.0) g/dL Albumin (3.5-5.0) g/dL Beta-Hydroxybutyrate (0.02-0.27) mmol/L Urine Color Urine Appearance Urine pH (5.0-9.0) Ur Specific [place] (1.005-1.025) Urine Protein (Neg-Trace) mg/dL Urine Glucose (UA) (Negative) mg/dL Urine Ketones (Negative) mg/dL Urine Blood (Negative) Urine Nitrite (Negative) Ur Leukocyte Esterase (Negative) Urine RBC (0-2) /HPF Urine WBC (0-5) /HPF Ur Squamous Epith Cells (0-2) /HPF Urine Bacteria (None Seen) Hyaline Casts (0-2) /LPF COVID-19 (ZENIA) (Negative) COVID-19 Clin Com Influenza Type A (KATHERINE) (Negative) Influenza Type B (KATHERINE) (Negative) Influenza A & B Note Independent Interpretation I performed an independent interpretation of an: EKG and Plain X-Ray Interpretation: My interpretation is in agreement with the radiologist's impression of this imaging study. L Reason for Exam: elevated blood sugar EXAMINATION: XR CHEST CLINICAL INFORMATION: elevated blood sugar COMPARISON: None available. TECHNIQUE: 2 views of the chest were obtained. FINDINGS: Cardiac and mediastinal contours are normal. The lungs are clear. No pleural effusion or pneumothorax. Degenerative changes of the spine. Unchanged T12 and L1 vertebral body compression fractures. There is a L3 vertebral body compression fracture, uncertain age. XR/XR chest 2V IMPRESSION: No evidence for acute disease in the chest. Mild T12 and L1 vertebral body compression fractures similar to February 2025 chest x-ray. L3 vertebral compression fracture, uncertain age. Electronically signed by: Nhung Chun MD 04/30/2025 11:09 AM EDT Dictated By: Nhung Chun MD Signed By: Electronically signed by Nhung Chun MD 04/30/25 1109 I independently interpreted this EKG and am in agreement with the below findings: Vent. Rate: 81 BPM Atrial Rate: 81 BPM P-R Int: 130 ms QRS Dur: 78 ms QT Int: 368 ms P-R-T Axes: 47 55 64 degrees QTcB Int: 427 ms Normal sinus rhythm Minimal voltage criteria for LVH, may be normal variant (Sokolow-Nazario) No previous ECGs available DD/ 1105 Radiology Impression Discussion of test interpretation with radiology: I have reviewed the radiologist's reading. Independent Historian Clinical information obtained from an independent historian. History obtained from or confirmed by: EMS (EMS provided additional history and confirmed the history provided by the patient. ) Chronic Conditions Patient?s care impacted by: Diabetes Discharge Plan Discharge Clinical Impression: Elevated blood sugar Diabetes Qualifiers: Diabetes mellitus type: other specified (including ANA) Diabetes mellitus nursing home insulin use: with nursing home use Diabetes mellitus complication status: with other specified complication Qualified Code(s): E13.69 - Other specified diabetes mellitus with other specified complication Patient Disposition: Home, Self-Care Instructions: Diabetic Hyperglycemia (ED), Diabetes and Nutrition (ED), Diabetes and Exercise (ED) Additional Instructions: Your work up today was reassuring there there is no EMERGENT cause for your elevated blood sugars and you are not in DKA. Continue using your insulin as directed and follow up with your PCP. IF you are prescribed home medications and/or you are taking over the counter medications at home - it is very important you continue to do so as prescribed / directed unless told otherwise. Follow up with your primary care provider. Return to the emergency department immediately if your symptoms worsen or if you develop any numbness, tingling, dizziness, shortness of breath, difficulty breathing, chest pain, blurry vision, loss of vision, nausea, vomiting, abdominal pain, fever, chills, back pain, or any other complaints. Please see the information below about our Patient Portal. If you are not yet enrolled in the [facility] Patient Portal, you will receive an enrollment email invitation following your visit to any [facility] care setting. You may also self-enroll in the Patient Portal by visiting our website: [email or web address] The following information is required to access the Patient Portal: - Your [facility] Medical Record Number - Your personal home email address (must match what is in your electronic medical record, Registration staff can assist with this) - Name - Date of Capabilities of the Patient Portal: - Message some providers - View upcoming appointments - Access your health summary, medical history, and visit history - View current conditions and allergies - View procedure and lab results - View your medications, including guidelines, side effects, and precautions - Complete pre-appointment questionnaires requested by your provider - Ready summary reports of your office visits and procedures To access the Patient Portal Mobile [place], follow these directions: - Search [employer] in the [place] Store or [employer] Store - Download the [place] - Search for [facility] - Enter your login/password Prescriptions: No Action carvedilol 3.125 mg tablet 6.25 mg PO BID 30 Days Qty: 120 3RF (DME) blood sugar diagnostic Strip See Rx Instructions .Route Qty: 50 0RF Rx Instructions: As directed rosuvastatin 40 mg tablet 40 mg PO DAILY 30 Days Qty: 30 3RF fenofibrate 120 mg tablet 120 mg PO DAILY 30 Days Qty: 30 3RF (DME) blood-glucose meter [FreeStyle Lite Meter] Kit See Rx Instructions .MEDSUPPLY Qty: 1 0RF Rx Instructions: As directed (DME) pen needle, diabetic 29 gauge x 1/2 needle See Rx Instructions .Route Qty: 200 5RF Rx Instructions: As directed (DME) pen needle, diabetic 32 gauge x 1/4 needle See Rx Instructions .MEDSUPPLY Qty: 200 5RF Rx Instructions: As directed four times daily insulin lispro [Admelog SoloStar U-100 Insulin] 100 unit/mL insulin pen See Rx Instructions subcut TID Qty: 45 4RF Rx Instructions: subcutaneously 3 times a day; subcutaneously 3 times a day; Administer 5-10 minutes before meals. Lispro sliding scale: Blood sugar 100-149 take 4 units Blood sugar 150-199 mg/dL take 6 units Blood sugar 200-249 mg/dL take 8 units Blood sugar 250-299 mg/dL take 10 units Blood sugar 300-349 mg/dL take 12 units Blood sugar 350-399 mg/dL take 14 units Blood sugar >/=400 mg /dL take 16 units gabapentin 600 mg tablet 600 mg PO TID 30 Days Qty: 90 0RF Entresto 24-26 mg tablet 1 tab PO BID epinephrine [EpiPen 2-Keshav] 0.3 mg/0.3 mL auto-injector 0.3 mg IM Q4H PRN (Reason: anaphylaxis) Qty: 2 0RF omeprazole 20 mg capsule,delayed release(DR/EC) 20 mg PO DAILY 30 Days Qty: 30 3RF (DME) blood pressure test kit-large Kit See Rx Instructions .Route Qty: 1 0RF Rx Instructions: As directed (DME) Ketone Urine Test Strip See Rx Instructions .ROUTE .MEDSUPPLY Qty: 100 0RF Rx Instructions: As directed glucose [Dex4 Glucose] 4 gram tablet,chewable 16 g PO Q15M PRN (Reason: low blood sugar) Qty: 10 3RF Rx Instructions: Until symptoms of low blood sugar resolve (DME) insulin syringe-needle U-100 [CareTouch Insulin Syringe] 0.5 mL 31 gauge x 5/16 syringe See Rx Instructions .Route Qty: 300 5RF Rx Instructions: As directed to administer aspart insulin three times daily insulin degludec [Tresiba FlexTouch U-100] 100 unit/mL (3 mL) insulin pen 76 unit subcut DAILY Qty: 45 4RF Baqsimi 3 mg/actuation spray,non-aerosol 3 mg intranasal ONCE Qty: 2 4RF fluoxetine 20 mg tablet 20 mg PO DAILY 30 Days Qty: 30 3RF hydroxyzine HCl 25 mg tablet 25 mg PO TID PRN (Reason: anxiety) Qty: 90 3RF magnesium oxide 500 mg magnesium tablet 500 mg PO DAILY 30 Days Qty: 30 3RF (DME) lancets [Easy Touch Lancets] 28 gauge misc See Rx Instructions .MEDSUPPLY Qty: 100 4RF Rx Instructions: As directed ondansetron HCl 4 mg tablet 4 mg PO Q8H lidocaine 5 % adhesive patch,medicated 2 patch topical ticagrelor 90 mg tablet 90 mg PO BID peg 3350-electrolytes [Golytely] 236-22.74-6.74 -5.86 gram recon soln 240 ml PO Q10M Qty: 4000 0RF Rx Instructions: as per split prep instructions, until fecal effluent is clear (DME) FreeStyle Sunny 3 Plus Sensor Device See Rx Instructions .ROUTE .MEDSUPPLY Qty: 2 11RF Rx Instructions: Apply 1 new sensor every 15 days as directed to monitor blood glucose continuously. (DME) FreeStyle Sunny 3 [place] Misc See Rx Instructions .ROUTE .MEDSUPPLY Qty: 1 0RF Rx Instructions: Use daily to monitor blood glucose levels continuously. (DME) FreeStyle Lite Strips Strip See Rx Instructions .MEDSUPPLY Qty: 200 4RF Rx Instructions: As directed four times daily. ketoconazole 2 % cream 1 appl topical BID 14 Days Qty: 30 0RF Referrals: Cally Rodriguez CNP [Primary Care Provider, Internal Medicine] Interventions: ED Discharge Assessment Last Done: 04/30/25 13:14 Discharge Date/Time: 04/30/25 13:15 Print Language: Kinyarwanda
--- NOTE | 2025-04-30 10:54 | ECG_ITS ---
Test Reason : elevated BS Blood Pressure : */* mmHG Vent. Rate : 81 BPM Atrial Rate : 81 BPM P-R Int : 130 ms QRS Dur : 78 ms QT Int : 368 ms P-R-T Axes : 47 55 64 degrees QTcB Int : 427 ms Normal sinus rhythm Minimal voltage criteria for LVH, may be normal variant ( Sokolow-Nazario ) Borderline ECG No previous ECGs available Referred By: Idania León Electronically Signed By: KAM SINGER MD
[2025-04-30 11:24] VITALS: BP 117/73; PULSE 82; RESP 18; TEMP 36.6; O2SAT 97
[2025-04-30 11:33] LABS: Glucose, Whole Blood 406 mg/dL (60-115)
[2025-04-30 11:39] LABS: Appearance Urine Clear; Glucose Urine UA >=1000 mg/dL (Negative); PH 6.0 (5.0-9.0); Specific Gravity - Urine >= 1.030 (1.005-1.025); UMIC TRIGGER UACC YES
[2025-04-30 11:44] LABS: MANUAL DIFF FLAG NO
[2025-04-30] MEDS: Lactated Ringers 1,000 ML 999 ML IV (11:46)
[2025-04-30 11:48] LABS: Venous Blood Gas Refer to POC result
[2025-04-30 11:49] LABS: Hematocrit 42.3 % (42.0-52.0); Hemoglobin 14.8 g/dl (14.0-18.0); Imm Gran Abs Auto 0.06 X10*3/uL (0.00-0.03); Imm Gran Pct Auto 0.5 % (0.0-0.4); Lymphocytes Absolute Auto 4.0 X10*3/uL (1.2-4.9); Mean Corpuscular HGB Conc 35.0 g/dl (31.0-36.0); Mean Corpuscular Hemoglobin 28.7 pg (27.0-33.0); Mean Corpuscular Volume 82.0 fL (80.0-98.0); NRBC Abs Auto 0.000 X10*3/uL (0.0-0.012); NRBC Pct Auto 0.0 /100WBC (0.0-0.2); Platelet Count 424 X10*3/uL (160-400); Red Blood Count 5.16 X10*6/uL (4.60-5.80); White Blood Count 12.4 X10*3/uL (4.8-10.8)
[2025-04-30 11:50] LABS: VBG HCO3 28 mmol/L (22-26); VBG O2 % Saturation 91.0 %
[2025-04-30 11:56] LABS: COVID-19 Test Negative (Negative); IDNOW Serial# 58CA691E
[2025-04-30 11:57] LABS: IDNOW Serial# 55D5AD1C; Influenza B2 Negative (Negative)
[2025-04-30 12:00] VITALS: BP 93/72; PULSE 94; RESP 18; TEMP 36.6; O2SAT 97
[2025-04-30 12:07] LABS: Alanine Aminotransferase 16 U/L (0-40); Albumin Level 4.2 g/dL (3.5-5.0); Alkaline Phosphatase 86 U/L (39-117); Anion Gap 10 (12-20); Aspartate Amino Transferase 13 U/L (5-37); Blood Urea Nitrogen 14 mg/dL (9-16); Calcium 9.0 mg/dL (8.4-10.2); Carbon Dioxide 28 mmol/L (22-29); Chloride 99 mmol/L (96-108); Creatinine Clr Calc Pharmacy 108.6; Estimated Glomerular Filt Rate > 60; Magnesium 2.1 mg/dL (1.6-2.6); Potassium 4.1 mmol/L (3.3-5.1); Sodium 133 mmol/L (135-145); Total Protein 7.2 g/dL (6.5-8.0)
[2025-04-30 12:13] LABS: Troponin-I High Sensitivity 5.7 ng/L (<3.5-35.0)
[2025-04-30 13:14] VITALS: BP 114/75; PULSE 75; RESP 16; TEMP 36.6; O2SAT 100
== END 2025-04-30 13:15 | disposition home or self-care (01) ==
PROVIDERS: Physician Assistant Medical; Emergency Provider Emergency Medicine; PCP Nurse Practitioner Family
DX: E10.65 Type 1 diabetes mellitus with hyperglycemia (principal); E10.40 Type 1 diabetes mellitus with diabetic neuropathy, unspecified; Z95.5 Presence of coronary angioplasty implant and graft; Z79.4 Long term (current) use of insulin; Z79.82 Long term (current) use of aspirin
CPT/HCPCS: 36415; 71046; 80053; 81001; 82010; 82803; 82947; 83036; 83735; 84484; 85025; 87502; 87635; 93005; 96360; 99212; 99284; 99285; J7120

== ENCOUNTER → 2025-04-30 10:54 | Outpatient (BNV) | payer OTHER, SELFPAY | PROVIDERS: Emergency Provider Emergency Medicine; PCP Nurse Practitioner Family; Visit Provider Internal Medicine Cardiovascular Disease | DX: R73.09 Other abnormal glucose (principal) | CPT/HCPCS: 93010 ==

== ENCOUNTER → 2025-04-30 10:54 | Outpatient (BNV) | payer OTHER, SELFPAY | PROVIDERS: PCP Nurse Practitioner Family; Visit Provider Radiology Diagnostic Radiology | DX: S32.030A Wedge compression fracture of third lumbar vertebra, initial encounter for closed fracture (principal) | CPT/HCPCS: 71046 ==

== ENCOUNTER 2025-06-05 11:37 | Outpatient (AMB) | payer OTHER, SELFPAY ==
--- NOTE | 2025-06-05 11:58 | A.OFFPC_ITS ---
Vital Signs 06/05/25 12:04 Height 5 ft 7 in Weight 115 lb 6 oz BMI 18.1 BP 111/73 Blood Pressure Location Lt brachial Position Sitting Respiration 16 Pulse 104 H Pulse Source Pulse Oximeter Temp 97.8 F Temp Source Oral Pulse Oximetry (%) 96 Oxygen Delivery Method Room Air Intake Visit Reasons: Diabetes Follow up, resched Intake Note: patient here for DM follow up, re-sched [employer] Wellness Instructor Required: No Allergies bee pollen Allergy (Mild, Verified 06/05/25 12:20) Vomiting Medication List - Last Reconciled 06/05/25 by Cally Rodriguez CNP acetone (urine) test (Ketone Urine Test strips) As directed blood pressure test kit-large As directed blood sugar diagnostic As directed blood sugar diagnostic (FreeStyle Lite Strips) As directed four times daily. blood-glucose meter (FreeStyle Lite Meter kit) As directed blood-glucose sensor (FreeStyle Sunny 3 Plus Sensor device) Apply 1 new sensor every 15 days as directed to monitor blood glucose continuously. blood-glucose,labor delivery rn,cont (FreeStyle Sunny 3 [place]) Use daily to monitor blood glucose levels continuously. carvedilol 6.25 mg (2 x 3.125 mg) PO BID 30 days epinephrine (EpiPen 2-Keshav) 0.3 mg (0.3 mL) IM Q4H PRN fenofibrate 120 mg PO DAILY 30 days fluoxetine 20 mg PO DAILY 30 days gabapentin 600 mg PO TID 30 days glucagon 3 mg/actuation (Baqsimi) 3 mg intranasal ONCE glucose (Dex4 Glucose) 16 grams (4 x 4 gram) PO Q15M PRN hydroxyzine HCl 25 mg PO TID PRN insulin degludec (Tresiba FlexTouch U-100 insulin) 76 units (0.76 mL) subcut DAILY insulin lispro (Admelog SoloStar U-100 Insulin lispro) subcutaneously 3 times a day; subcutaneously 3 times a day; Administer 5-10 minutes before meals. Lispro sliding scale: Blood sugar 100-149 take 4 units Blood sugar 150-199 mg/dL take 6 units Blood sugar 200-249 mg/dL take 8 units Blood sugar 250-299 mg/dL take 10 units Blood sugar 300-349 mg/dL take 12 units Blood sugar 350-399 mg/dL take 14 units Blood sugar >/=400 mg /dL take 16 units insulin syringe-needle U-100 (CareTouch Insulin Syringe) As directed to administer aspart insulin three times daily ketoconazole 2% 1 appl topical BID 2 weeks lancets (Easy Touch Lancets) As directed lidocaine 5% 2 patches topical magnesium oxide 500 mg PO DAILY 30 days omeprazole 20 mg PO DAILY 30 days ondansetron HCl 4 mg PO Q8H peg 3350-electrolytes 236-22.74-6.74 -5.86 gram (Golytely) 240 mL PO Q10M pen needle, diabetic As directed four times daily pen needle, diabetic As directed rosuvastatin 40 mg PO DAILY 30 days sacubitril-valsartan 24-26 mg (Entresto) 1 tab PO BID ticagrelor 90 mg PO BID Tobacco use date assessed: 06/05/25 Dental Screening Dental Screen Date: 06/05/25 Did you have a dental visit in the last 12 months?: No Did you have a dental problem in the last 6 months where you did not have access to dental care?: No Was dental information given to patient?: Yes HPI HPI Comments History of Present Illness Details 49-year-old male presents for diabetes a nd recent ED discharge follow- up. He admits to taking his medications as prescribed without adverse reactions. He notes that his up to 90 units daily in the evening on Tresiba, contrary with to 76 units daily on his med list. He states that his fasting glucose usually between 70-100 and random glucose between 300-400. He has a follow-up appointment with endocrinology in a few days. He reports persistent tingling and numbness to his feet and lower legs. Requests nutritional drink to help with weight management. He was evaluated and treated at [facility] [place] [facility] on 04/30/2025 for elevated glucose. 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 His blood glucose improved from 500 to 406. He received 1 L of lactated ringer at the ED. WBC was slightly elevated, 12.4, lab results were otherwise unremarkable. EKG and chest x-ray were normal. He was discharged home without medication changes. [facility] Medical History Newly diagnosed type 1 diabetes mellitus Food insecurity Blurry vision Hyperglycemia No pertinent past medical history Surgical History History of colon resection H/O colonoscopy H/O heart artery stent Family History Sister Heart attack Maternal Uncle FHx: mental illness Mother Substance abuse Father Substance abuse Other Type 2 diabetes mellitus with diabetic neuropathy, unspecified Social History Housing: Condominium Alcohol intake: current Patient Tobacco Use Status: Current everyday Tobacco user Tobacco use type: Cigarette e-Cigarette/Vaping Use: Never Used Second Hand Smoke Exposure: No Substance Use Type: Marijuana service: No Current occupational status: employed 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 Current occupational exposures/hazards: No Cognitive needs: No Hearing needs: No Vision needs: Yes Questionnaire Thrive Questionnaire Date Thrive assessed: 11/17/24 I am a: Patient What is your living situation today?: I have a steady place to live Within the past 12 months, did the food you bought not last and you didn't have the money to get more?: Often true Within the past 12 months, did you worry whether your food would run out before you got money to buy more?: Often true Do you have trouble paying for medicines?: Yes Do you have trouble getting transportation to medical appointments?: Yes Do you have trouble paying your heating and electricity bill?: Yes Do you have trouble taking care of your child, family member or friend?: No Do you have trouble with day-to-day activities such as bathing, preparing meals, shopping, managing finances, etc.?: Yes Are you currently unemployed and looking for a job?: Yes Are you interested in more education?: No Currently or been in a relationship where the following occur: I choose not to answer THRIVE Score: 4 KEL-7 AMB Questionnaire KEL-7 Date KEL - 7 assessed: 11/28/24 Source: Developed by Drs. Volodymyr Saba, Rafia Bingham, Dirk Galvin and colleagues, with an educational merlin from [employer]. Review of Systems Const Details: Const Denies chills, Denies fatigue, Denies fever(s), Denies headache(s) and Denies weakness ENT Denies dizziness and Denies headache(s) Card Denies chest pain, Denies lightheadedness, Denies dyspnea and Denies other (Palpitations) Resp Denies cough, Denies dyspnea, Denies wheezing and Denies other ( shortness of breath) GI Denies abdominal pain, Denies melena, Denies hematochezia, Denies change in bowel habits, Denies dyspepsia and Denies nausea Denies hematuria and Denies dysuria Musc Denies abnormal gait, Denies myalgias, Denies arthralgias, Denies numbness and Denies tingling Skin/Breast Denies rash, Denies unusual bruising and Denies wounds Neuro Denies abnormal gait, Denies dizziness, Denies headache(s), Denies memory loss, Reports tingling, Reports numbness, Denies Sensory deficit (Neuro), Denies weakness Psych Denies anxiety, Denies depression, Denies memory loss Endo Denies cold intolerance, Denies fatigue, Denies heat intolerance, Denies polydipsia and Denies polyuria Aller/Immun Denies wheezing Physical exam (Primary Care) Vital Signs: Last Vital Signs Temp 97.8 F 06/05/25 12:04 Pulse 104 H 06/05/25 12:04 Resp 16 06/05/25 12:04 BP 111/73 06/05/25 12:04 Pulse Ox 96 06/05/25 12:04 Oxygen Delivery Method Room Air 06/05/25 12:04 BMI result Body Mass Index 18.1 Tobacco/Smoking Status: Tobacco use Status Tobacco use date assessed 06/05/25 06/05/25 12:07 Patient Tobacco Use Status Current everyday Tobacco 06/05/25 12:01 Tobacco use type Cigarette 06/05/25 12:01 e-Cigarette/Vaping Use Never Used 06/05/25 12:01 Thrive Assessment: Date of Thrive Assessment Date Thrive assessed 11/17/24 06/05/25 12:01 Currently or been in a relationship where the following occur: I choose not to answer Const Other: General: no acute distress and well developed Nutritional Appearance: well nourished Orientation/consciousness: patient oriented x3 HENMT Head: Yes normocephalic and Yes atraumatic Eyes General: appearance normal, both eyes and all related structures Pupils: Equal, round and reactive pupils present EOM: EOMs intact bilaterally Resp Effort & Inspection: normal respiratory effort Auscultation: clear to auscultation bilaterally Cardio Rate: regular rate Rhythm: regular rhythm Heart sounds: S1 normal heart sound present, S2 normal heart sound present, no gallops, no murmurs and no rubs Extrem General: Yes normal to inspection, No edema and No calf tenderness Skin General: warm and dry. Normal skin color. Normal skin turgor Neuro General: patient oriented x3, gait normal and no focal neuro deficit Cranial nerves: Yes Equal, round and reactive pupils present Cognition (Neuro): normal cognition Gait exam (Neuro): Normal gait present Sensory Exam: No Sensory deficit (Neuro) Psych Appearance: grossly normal Affect: normal affect Attitude: cooperative Thought process: Normal thought process present Coding Level of Care Code Est Pt Level 4 (15786) Diagnoses Newly diagnosed type 1 diabetes mellitus E10.9 Essential hypertension I10 Hospital discharge follow-up Z09 Diabetic neuropathy E11.40 Assessment & Plan Assessment & Plan (1) Newly diagnosed type 1 diabetes mellitus: Code(s): E10.9 - Type 1 diabetes mellitus without complications Category: Medical Plan: Recent A1c on 04/30/2025 was 12.0%. Continue current treatment regimen. Glucerna as prescribed. Follow-up with endocrinology as planned. Schedule a transfer of care with a new provider in our office. Return with symptoms or concerns. Verbalized understanding and agreed with the plan. (2) Essential hypertension: Code(s): I10 - Essential (primary) hypertension Category: Medical Plan: Blood pressure is 111/73, within goal of less than 130/80. Continue current treatment regimen. Routine exercise encouraged. Follow-up as planned. Verbalized understanding and agreed with treatment plan. (3) Hospital discharge follow-up: Code(s): Z09 - Encounter for follow-up examination after completed treatment for conditions other than malignant neoplasm Category: Medical Plan: Plan as above. Will recheck CBC. (4) Diabetic neuropathy: Code(s): E11.40 - Type 2 diabetes mellitus with diabetic neuropathy, unspecified Category: Medical Plan: Reports persistent tingling and numbness to his feet and lower legs. Gabapentin increased to 800 mg 3 times daily; advised to take as prescribed. Follow-up as needed. Verbalized understanding and agreed with the plan. Orders: Orders Complete Blood Count Auto Diff Today Z09 - Encounter for follow-up examination after completed treatment for conditions other than malignant neoplasm Medications: New gabapentin 800 mg PO TID 90 tabs 3RF 30 days nut.tx.gluc.intol,lac-free,soy (Glucerna Therapeutic Nutrition oral liquid) 1 box/237ml twice daily 14,220 mL 3RF Discontinued gabapentin Discontinued Reason: Doctor's Order 600 mg PO TID 30 days 90 tabs 0RF
[2025-06-05 12:04] VITALS: BP 111/73; PULSE 104; RESP 16; TEMP 36.6; O2SAT 96; BMI 18.1
== END 2025-06-05 12:35 | disposition home or self-care (01) ==
LOC: HO.HMCFM 11:38
PROVIDERS: PCP Nurse Practitioner Family; Visit Provider Nurse Practitioner Family
DX: E11.40 Type 2 diabetes mellitus with diabetic neuropathy, unspecified (principal); I10 Essential (primary) hypertension

== ENCOUNTER → 2025-06-05 11:37 | Outpatient (BNVA) | payer OTHER, SELFPAY | PROVIDERS: Visit Provider Nurse Practitioner Family | DX: E10.40 Type 1 diabetes mellitus with diabetic neuropathy, unspecified (principal); I10 Essential (primary) hypertension; R20.0 Anesthesia of skin; R20.2 Paresthesia of skin; Z09 Encounter for follow-up examination after completed treatment for conditions other than malignant neoplasm | CPT/HCPCS: 99212 ==